=== PATIENT | male | born 1955 | race Caucasian/White ===

== ENCOUNTER 2022-07-19 03:37 | Outpatient (CLI) | payer MEDICARE, SELFPAY ==
--- OUTSIDE RECORDS SUMMARY | 2022-07-19 03:40 | XMS_ITS | Continuity of Care Document ---
Author Name Unknown Organization [facility] Address [address] [place] [address] Encounter [id number] FIN NBR [id number] Date(s): 03/27/22 - 03/27/[address] [id number] Encounter Diagnosis UTI (urinary tract infection)(Discharge Diagnosis) - 03/27/22 Discharge Disposition: Home or Self Care Attending Physician: Wolf Lennon MD Admitting Physician: Wolf Lennon MD Allergies, Adverse Reactions, Alerts Substance Reaction Severity Status Lovenox Rash Moderate Active Medications alfuzosin 10 mg oral tablet, extended release 10 mg = 1 tab, Oral, Daily, # 30 tab, 0 Refill(s) Start Date: 03/27/22 Status: Ordered cephalexin 500 mg oral capsule 500 mg = 1 cap, Oral, every 8 hr, # 21 EA, 0 Refill(s) Start Date: 03/27/22 Status: Ordered Farxiga 10 mg oral tablet 10 mg = 1 tab, Oral, Daily, # 30 tab, 0 Refill(s) Start Date: 03/27/22 Status: Ordered gabapentin enacarbil 600 mg oral tablet, extended release 600 mg =, Oral, BID, # 60 cap, 0 Refill(s) Start Date: 03/27/22 Status: Ordered lamoTRIgine 200 mg oral tablet 200 mg = 1 tab, Oral, BID, # 180 tab, 0 Refill(s) Start Date: 03/27/22 Status: Ordered losartan 50 mg oral tablet 50 mg = 1 tab, Oral, Daily, # 90 tab, 0 Refill(s) Start Date: 03/27/22 Status: Ordered Problem List Condition Confirmation Course Effective Dates Status Health St atus Informant UTI (urinary tract infection) Confirmed Active Results Laboratory List Name Date Basic Metabolic Panel (BMP) 03/27/22 CBC w/ Diff 03/27/22 PT/ INR 03/27/22 Urinalysis Microscopic 03/27/22 Urinalysis with Micro if Indicated and C ulture if Indicated 03/27/22 Automated Diff 03/27/22 Most recent to oldest [Reference Range]: 1 WBC [4.8-10.8 K/mcL] 6.6 K/mcL (03/27/22 11:38 AM) RBC [4.20-6.10 Million/mcL] 5.55 Million /mcL (03/27/22 11:38 AM) Neutro Auto [42.2-75.2 %] 58.3 % (03/27/22 11:38 AM) Lymph Auto [20.5-51.1 %] 35.2 % (03/27/22 11:38 AM) Graves Auto [1.7-9.3 %] 4.5 % (03/27/22 11:38 AM) Basophil Auto [0.0-0.8 %] 0.3 % (03/27/22 11:38 AM) Prothrombin Time [9.1-10.6 seconds] 10.1 seconds (03/27/22 11:38 AM) INR [0.9-1.1] 1.0 (03/27/22 11:38 AM) BUN [8-26 mg/dL] 25 mg/dL (03/27/22 11:38 AM) UA Color [Yellow] Stephanie *ABN* (03/27/22 11:38 AM) UA WBC [0-3] 6-10 *ABN* (03/27/22 11:38 AM) Glucose Level [74-106 mg/dL] 142 mg/dL *HI* (03/27/22 11:38 AM) Potassium Level [3.5-5.1 mmol/L] 4.4 mmo l/L (03/27/22 11:38 AM) Baso Absolute [0.0-0.2 K/mcL] 0.0 K/mcL (03/27/22 11:38 AM) MCV [80.0-99.0 fL] 86.3 fL (03/27/22 11:38 AM) UA Urobilinogen [0.2] 0.2 (03/27/22 11:38 AM) UA Amorph Urate Ángela [None Seen] Moderat e *ABN* (03/27/22 11:38 AM) UA Bili [Negative] Negative (03/27/22 11:38 AM) UA Ketones [Negative] Negative (03/27/2238 AM) MCHC [32.0-36.0 g/dL] 34.9 g/dL (03/27/22 11:38 AM) Osmolality [275-295 mOsm/kg] 282 mOsm/kg (03/27/2238 AM) Sodium Level [134-143 mmol/L] 138 mmol/L (03/27/22 11:38 AM) UA RBC [0-3] 50-99 *ABN* (03/27/22:38 AM) UA Leuk Est [Negative] Negative (03/27/22:38 AM) Lymph Absolute [1.2-3.4 K/mcL] 2.3 K/mcL (03/27/22 11:38 AM) UA Gran Cast [None Seen] 0-3 *ABN* (03/27/2238 AM) UA Nitrite [Negative] Negative (03/27/22:38 AM) UA Glucose [Negative] >=1000 *ABN* (03/27/22:38 AM) Hct [37.0-52.0 %] 47.9 % (03/27/22:38 AM) UA Bacteria [None Seen] 1+ 1 *ABN* (03/27/22:38 AM) Calcium Level [8.9-10.3 mg/dL] 9.8 mg/dL (03/27/22:38 AM) Graves Absolute [0.1-0.6 K/mcL] 0.3 K/mcL (03/27/22 11:38 AM) UA Protein [Negative] 30 *ABN* (03/27/22 11:38 AM) MCH [27.0-31.0 pg] 30.1 pg (03/27/22:38 AM) Neutro Absolute [1.4-6.5 K/mcL] 3.9 K/mc L (03/27/22 11:38 AM) Hgb [12.0-18.0 g/dL] 16.7 g/dL (03/27/22 1138 AM) UA Blood [Negative] Large *ABN* (03/27/22 11:38 AM) MPV [7.4-10.4 fL] 11.6 fL *HI* (03/27/22 11:38 AM) UA Spec Grav 1.025 *NA* (03/27/22 11:38 AM) Platelets [130-400 K/mcL] 163 K/mcL (03/27/22 11:38 AM) CO2 [22-32 mmol/L] 24 mmol/L (03/27/22 11:38 AM) Eos Absolute [0.0-0.2 K/mcL] 0.1 K/mcL (03/27/22 11:38 AM) UA pH 5.00 *NA* (03/27/22 11:38 AM) eGFR Non-AA 66 *NA* (03/27/22 11:38 AM) eGFR AA 66 *NA* (03/27/22 11:38 AM) UA Appear [Clear] Slightly Cloudy *ABN* (03/27/22 11:38 AM) Chloride Level [98-111 mmol/L] 103 mmol/ L (03/27/22 11:38 AM) RDW-CV [11.5-14.5 %] 13.5 % (03/27/22 11:38 AM) BUN/Creat Ratio [8.0-20.0] 20.3 *HI* (03/27/22 11:38 AM) Imm Gran Absolute 0.02 *NA* (03/27/22 11:38 AM) Imm Gran Auto [0.0-0.5 %] 0.3 % (03/27/22 11:38 AM) UA Culture Ind?. [No] Yes (03/27/22 11:38 AM) Urine Srce Clean Catch (03/27/22 11:38 AM) UA Trans Epi [None Seen] 0-3 *ABN* (03/27/22 11:38 AM) Creatinine Level [0.61-1.24 mg/dL] 1.23 mg/dL (03/27/22 11:38 AM) Anion Gap [3.0-12.0] 11.0 (03/27/22 11:38 AM) Eos, Auto [0.00-3.00 %] 1.40 % (03/27/22 11:38 AM) 1Result Comment: difficult to discern bacteria from amorphous material Orders for Microbiology Reports Name Date Urine Culture 03/27/22 Microbiology Reports TEST:Urine Culture STATUS:Order in Progress BODY SITE: SOURCE:Urine COLLECTED DATE/TIME:03/27/22 11:38 AM PRELIMINARY REPORT No growth of uropathogens Vital Signs Most recent to oldest [Reference Range]: 1 2 Temperature Temporal Artery [36-38 Deg C ] 35.7 Deg C *LOW* (03/27/22 12:30 PM) 36.1 Deg C (03/27/22 10:47 AM) Peripheral Pulse Rate [60-100 bpm] 66 bp m (03/27/22 12:30 PM) 78 bpm (03/27/22 10:47 AM) Respiratory Rate [12-24 br/min] 14 br/mi n (03/27/22 12:30 PM) 14 br/min (03/27/22 10:47 AM) Blood Pressure [90-140/60-90 mmHg] 142/7 6mmHg *HI* (03/27/22 12:30 PM) 149/86mmHg *HI* (03/27/22 10:47 AM) Weight Dosing 85.28 kg (03/27/22 11:37 AM) Weight Estimated 85.28 kg (03/27/22 10:47 AM) Height/Length Dosing 175.000 cm (03/27/22 11:37 AM) Height/Length Estimated 175.000 cm (03/27/22 10:47 AM) Social History Social History Type Response Tobacco Former tobacco user Tobacco Use:. Sex Hospital Discharge Instructions Patient Education 03/27/2022 12:00:23 Urinary Tract Infection, Adult Urinary Tract Infection, Adult A urinary tract infection (UTI) is an infection of any part of the urinary tract. The urinary tractincludes the kidneys, ureters, bladder, and urethra. These organs make, store, and get rid of urinein the body. An upper UTI affects the ureters and kidneys. A lower UTI affects the bladder and urethra. What are the causes? Most urinary tract infections are caused by bacteria in your genital area around your urethra, where urine leaves your body. These bacteria grow and cause inflammation of your urinary tract. What increases the risk? You are more likely to develop this condition if: ??? You have a urinary catheter that stays in place. ??? You are not able to control when you urinate or have a bowel movement (incontinence). ??? You are female and you: ??? Use a spermicide or diaphragm for control. ??? Have low estrogen levels. ??? Are . ??? You have certain genes that increase your risk. ??? You are sexually active. ??? You take antibiotic medicines. ??? You have a condition that causes your flow of urine to slow down, such as: ??? An enlarged prostate, if you are male. ??? Blockage in your urethra. ??? A kidney stone. ??? A nerve condition that affects your bladder control (neurogenic bladder). ??? Not getting enough to drink, or not urinating often. ??? You have certain medical conditions, such as: ??? Diabetes. ??? A weak disease-fighting system (immunesystem). ??? Sickle cell disease. ??? Gout. ??? Spinal cord injury. What are the signs or symptoms? Symptoms of this condition include: ??? Needing to urinate right away (urgency). ??? Frequent urination. This may include small amounts of urine each time you urinate. ??? Pain or burning with urination. ??? Blood in the urine. ??? Urine that smells bad or unusual. ??? Trouble urinating. ??? Cloudy urine. ??? Vaginal discharge, if you are female. ??? Pain in the abdomen or the lower back. You may also have: ??? Vomiting or a decreased appetite. ??? Confusion. ??? Irritability or tiredness. ??? A fever or chills. ??? Diarrhea. The first symptom in older adults may be confusion. In some cases, they may not have any symptoms until the infection has worsened. How is this diagnosed? This condition is diagnosed based on your medical history and a physical exam. You may also have other tests, including: ??? Urine tests. ??? Blood tests. ??? Tests for STIs (sexually transmitted infections). If you have had more than one UTI, a cystoscopy or imaging studies may be done to determine the cause of the infections. How is this treated? Treatment for this condition includes: ??? Antibiotic medicine. ??? Ufbn-fpc-jmzhyzm medicines to treat discomfort. ??? Drinking enough water to stay hydrated. If you have frequent infections or have other conditions such as a kidney stone, you may need to see a health care provider who specializes in the urinary tract (urologist). In rare cases, urinary tract infections can cause sepsis. Sepsis is a life- threatening condition that occurs when the body responds to an infection. Sepsis is treated in the hospital with IV antibiotics, fluids, and other medicines. Follow these instructions at home: Medicines ??? Take aduf-awr-nvxehao and prescription medicines only as told by your health care provider. ??? If you were prescribed an antibiotic medicine, take it as told by your health care provider. Donot stop using the antibiotic even if you start to feel better. General instructions ??? Make sure you: ??? Empty your bladder often and completely. Do not hold urine for long periods of time. ??? Empty your bladder after sex. ??? Wipe from front to back after urinating or having a bowel movement if you are female. Use each tissue only one time when you wipe. ??? Drink enough fluid to keep your urine pale yellow. ??? Keep all follow-up visits. This is important. Contact a health care provider if: ??? Your symptoms do not get better after 1???2 days. ??? Your symptoms go away and then return. Get help right away if: ??? You have severe pain in your back or your lower abdomen. ??? You have a fever or chills. ??? You have nausea or vomiting. Summary ??? A urinary tract infection (UTI) is an infection of any part of the urinary tract, which includes the kidneys, ureters, bladder, and urethra. ??? Most urinary tract infections are caused by bacteria in your genital area. ??? Treatment for this condition often includes antibiotic medicines. ??? If you were prescribed an antibiotic medicine, take it as told by your health care provider. Donot stop using the antibiotic even if you start to feel better. ??? Keep all follow-up visits. This is important. This information is not intended to replace advice given to you by your health care provider. Make sure you discuss any questions you have with your health care provider. Document Revised: 11/10/2020 Document Reviewed: 11/10/2020 [employer] Patient Education ?? 2021 [employer]. Follow Up Care 03/27/2022 10:47:16 With:Nephrology Address: When:04/01/2022 07:00:00 Comments:Keep your scheduled appointment Physician Emergency department Note * Daniella Gotti [employer]OTOTYPING ENGINEER: PERFORM Event Display: ED Note Physician Authored Date: [id number] JARRETT ROOT :1955 Age:66 years Sex:Male Visit Date:03/27/2022 Basic Information Time Seen: Daniella Gotti [employer]ER[employer]OTYPING ENGINEER / 03/27/2022 10:55 Chief Complaint Ptreports blood inurine since before 03/14, denies fevers, or pain w/ urination, endorces some hesitency. History Of Present Illness: This is a very pleasant 66-year-old male patient with a history of nephrectomy secondary to cancer several years ago.?? He has had no issues with kidney function or urinary tract infections.?? He noted at the end of February that he had blood in his urine.?? He did contact the packager head as he has a solitary kidney.?? He reports that he has scheduled appointments for evaluation coming up but noted that the urine was getting darker in color and as he has a solitary kidney was concerned and wanted an evaluation sooner.?? He has had no fevers no symptoms of dysuria frequency or urgency no abdominal or flank pain.?? He has had no recent illness Review of Systems: Constitutional:?No??fevers,?No??chills,?No??sweats Gastrointestinal:?Nonausea,?No??vomiting,?No??diarrhea Genitourinary:?Positive for??hematuria No frequency urgency dysuria or flank pain Patel/Lymph:?No??bruising tendency,?No??swollen lymph glands Musculoskeletal:??No??back pain,?? Integumentary:?No??rash,?No??pruritus,?No??abrasions Neurologic: Alert & oriented X 4 Psychiatric:?No??anxiety,?No??depression Physical Exam Vitals & Measurements T:??35.7?C ??(Temporal Artery)?? HR:??66??(Peripheral)?? RR:??14?? BP:??142/76?? SpO2:??100%?? HT:??175.000??cm?? WT:??85.28??kg??(Estimated)?? General: Alert and oriented, well nourished,?No??acute distress Eye: PERRL, EOMI,?Normal??conjunctiva HENT: Normocephalic, Neck: Supple, non-tender,? Lungs:??respirations even and unlabored CV:?regular rate and rhythm Abdomen: Soft, non-tender, non-distended,? Musculoskeletal:?Normal?? range of motion and strength,?No??tenderness,?No??swelling Skin: Skin is warm, dry and pink,?No??rashes,?No??lesions Neurologic: Awake, alert and oriented X4, Psychiatric: Cooperative, appropriate mood and affect ?? Procedure No Qualifying Data Assessment/Plan 1.??UTI (urinary tract infection)??N39.0 Given ceftriaxone 1 g IV while awaiting cultures we will discharge home on cephalexin 500 mg 3 times daily for 1 week he should keep his follow-up appointment with nephrology as scheduled return sooner for new or worsening symptoms Orders: cephalexin 500 mg oral capsule, 500 mg = 1 cap, Oral, every 8 hr, # 21 EA, 0 Refill(s) Urine Culture, Urine, Stat collect, ST - Stat, 03/27/22 11:38:00 EST, Once, Nurse collect, Collected, 03/27/22 11:38:00 EST, Print Label, [id number] Patient Education Urinary Tract Infection, Adult Follow Up With When Contact Information Nephrology 04/01/2022 08:00 AM EST Additional Instructions: Keep your scheduled appointment Medication Reconciliation New Prescription cephalexin (cephalexin 500 mg oral capsule)1 Capsules Oral (given by mouth) every 8 hours. Refills:0. ?? Unchanged alfuzosin (alfuzosin 10 mg oral tablet, extended release)1 tab Oral (given by mouth) every day. ?? dapagliflozin (Farxiga 10 mg oral tablet)1 tab Oral (given by mouth) every day. ?? gabapentin (gabapentin enacarbil 600 mg oral tablet, extended release)600 Milligrams Oral (given bymouth) 2 times a day. ?? lamoTRIgine (lamoTRIgine 200 mg oral tablet)1 tab Oral (given by mouth) 2 times a day. ?? losartan (losartan 50 mg oral tablet)1 tab Oral (given by mouth) every day. Problem List/Past Medical History Ongoing UTI (urinary tract infection) Historical No qualifying data Medication Administration Given cefTRIAXone, 1 g, IV Piggyback Allergies Lovenox??(Rash) Social History Alcohol 1-2 times per year Electronic Cigarette/Vaping Electronic Cigarette Use: Never. Tobacco Former tobacco user Tobacco Use:. Lab Results CBC and Differential?? LATEST RESULTS?? WBC?? 03/27/22 11:38?? 6.6?? RBC?? 03/27/22 11:38?? 5.55?? Hgb?? 03/27/22 11:38?? 16.7?? Hct?? 03/27/22 11:38?? 47.9?? MCV?? 03/27/22 11:38?? 86.3?? MCH?? 03/27/22 11:38?? 30.1?? MCHC?? 03/27/22 11:38?? 34.9?? RDW-CV?? 03/27/22 11:38?? 13.5?? Platelets?? 03/27/22 11:38?? 163?? MPV?? 03/27/22 11:38?? 11.6 ??High?? Neutro Auto?? 03/27/22 11:38?? 58.3?? Lymph Auto?? 03/27/22 11:38?? 35.2?? Graves Auto?? 03/27/22 11:38?? 4.5?? Eos, Auto?? 03/27/22 11:38?? 1.40?? Basophil Auto?? 03/27/22 11:38?? 0.3?? Imm Gran Auto?? 03/27/22 11:38?? 0.3?? Neutro Absolute?? 03/27/22 11:38?? 3.9?? Lymph Absolute?? 03/27/22 11:38?? 2.3?? Graves Absolute?? 03/27/22 11:38?? 0.3?? Eos Absolute?? 03/27/22 11:38?? 0.1?? Baso Absolute?? 03/27/22 11:38?? 0.0?? Imm Gran Absolute?? 03/27/22 11:38?? 0.02? Coagulation?? LATEST RESULTS?? Prothrombin Time?? 03/27/22 11:38?? 10.1?? INR?? 03/27/22 11:38?? 1.0? Routine Chemistry?? LATEST RESULTS?? Sodium Level?? 03/27/22 11:38?? 138?? Potassium Level?? 03/27/22 11:38?? 4.4?? Chloride Level?? 03/27/22 11:38?? 103?? CO2?? 03/27/22 11:38?? 24?? BUN?? 03/27/22 11:38?? 25?? Glucose Level?? 03/27/22 11:38?? 142 ??High?? Creatinine Level?? 03/27/22 11:38?? 1.23?? BUN/Creat Ratio?? 03/27/22 11:38?? 20.3 ??High?? eGFR AA?? 03/27/22 11:38?? 66?? eGFR Non-AA?? 03/27/22 11:38?? 66?? Calcium Level?? 03/27/22 11:38?? 9.8?? Anion Gap?? 03/27/22 11:38?? 11.0?? Osmolality?? 03/27/22 11:38?? 282? UA Macroscopic?? LATEST RESULTS?? Urine Srce?? 03/27/22 11:38?? Clean Catch?? UA Color?? 03/27/22 11:38?? Stephanie Abnormal?? UA Appear?? 03/27/22 11:38?? Slightly Cloudy Abnormal?? UA Glucose?? 03/27/22 11:38?? >=1000 Abnormal?? UA Bili?? 03/27/22 11:38?? Negative?? UA Ketones?? 03/27/22 11:38?? Negative?? UA Spec Grav?? 03/27/22 11:38?? 1.025?? UA Blood?? 03/27/22 11:38?? Large Abnormal?? UA pH?? 03/27/22 11:38?? 5.00?? UA Protein?? 03/27/22 11:38?? 30 Abnormal?? UA Urobilinogen?? 03/27/22 11:38?? 0.2?? UA Nitrite?? 03/27/22 11:38?? Negative?? UA Leuk Est?? 03/27/22 11:38?? Negative?? UA Culture Ind?.?? 03/27/22 11:38?? Yes? UA Microscopic?? LATEST RESULTS?? UA WBC?? 03/27/22 11:38?? 6-10 Abnormal?? UA RBC?? 03/27/22 11:38?? 50-99 Abnormal?? UA Trans Epi?? 03/27/22 11:38?? 0-3 Abnormal?? UA Bacteria?? 03/27/22 11:38?? 1+ Abnormal?? UA Amorph Urate Ángela?? 03/27/22 11:38?? Moderate Abnormal?? UA Gran Cast?? 03/27/22 11:38?? 0-3 Abnormal? Electronically Signed on 03/27/22 01:02 PM Daniella Gotti APRN Emergency department Discharge instructions * Daniella Gotti APRN: PERFORM Event Display: ED Discharge Information Authored Date: [id number] JARRETT ROOT :1955 Age:66 years Sex:Male Visit Date:03/27/2022 Discharge Instructions We would like to thank you for allowing us to assist you with your healthcare needs. The following includes patient education materials and information regarding your injury/illness. Diagnosis from Today's Visit UTI (urinary tract infection) Discharge Vitals Temperature??(Temporal Artery) 96.3 ??F (35.7 ??C) Heart Rate??(Peripheral) 66 Respiratory Rate?? 14 Blood Pressure?? 142/76?? Height?? 68.90 in (175.000 cm) Weight??(Estimated) 188.04 lb (85.28 kg) Allergies Lovenox??(Rash) What to Do Next Instructions from Your Care Team Take antibiotics as prescribed even if you feel better unless directed by your doctor You Need to Schedule the Following Appointments Follow Up with??Nephrology When:??04/01/2022 08:00 AM EST Why: Keep your scheduled appointment You were treated today on an emergency basis; it may be borrero to contact your primary care provider to notify them of your visit today. You may have been referred to your regular doctor or a specialist, please follow up as instructed. If your condition worsens or you can't get in to see the doctor, contact the Emergency Department. Medications What How Much When Instructions Next Dose New cephalexin (cephalexin 500 mg oral capsule) 1 Capsules Oral (given by mouth) Every 8 hours Printed Prescription Unchanged alfuzosin (alfuzosin 10 mg oral tablet, extended release) 1 tab Oral (given by mouth) Every day Unchanged dapagliflozin (Farxiga 10 mg oral tablet) 1 tab Oral (given by mouth) Every day Unchanged gabapentin (gabapentin enacarbil 600 mg oral tablet, extended release) 600 Milligrams Oral (given by mouth) 2 times a day Unchanged lamoTRIgine (lamoTRIgine 200 mg oral tablet) 1 tab Oral (given by mouth) 2 times a day Unchanged losartan (losartan 50 mg oral tablet) 1 tab Oral (given by mouth) Every day Education Materials Urinary Tract Infection, Adult A urinary tract infection (UTI) is an infection of any part of the urinary tract. The urinary tractincludes the kidneys, ureters, bladder, and urethra. These organs make, store, and get rid of urinein the body. An upper UTI affects the ureters and kidneys. A lower UTI affects the bladder and urethra. What are the causes? Most urinary tract infections are caused by bacteria in your genital area around your urethra, where urine leaves your body. These bacteria grow and cause inflammation of your urinary tract. What increases the risk? You are more likely to develop this condition if: ? You have a urinary catheter that stays in place. ? You are not able to control when you urinate or have a bowel movement (incontinence). ? You are female and you: ? Use a spermicide or diaphragm for control. ? Have low estrogen levels. ? Are . ? You have certain genes that increase your risk. ? You are sexually active. ? You take antibiotic medicines. ? You have a condition that causes your flow of urine to slow down, such as: ? An enlarged prostate, if you are male. ? Blockage in your urethra. ? A kidney stone. ? A nerve condition that affects your bladder control (neurogenic bladder). ? Not getting enough to drink, or not urinating often. ? You have certain medical conditions, such as: ? Diabetes. ? A weak disease-fighting system (immunesystem). ? Sickle cell disease. ? Gout. ? Spinal cord injury. What are the signs or symptoms? Symptoms of this condition include: ? Needing to urinate right away (urgency). ? Frequent urination. This may include small amounts of urine each time you urinate. ? Pain or burning with urination. ? Blood in the urine. ? Urine that smells bad or unusual. ? Trouble urinating. ? Cloudy urine. ? Vaginal discharge, if you are female. ? Pain in the abdomen or the lower back. You may also have: ? Vomiting or a decreased appetite. ? Confusion. ? Irritability or tiredness. ? A fever or chills. ? Diarrhea. The first symptom in older adults may be confusion. In some cases, they may not have any symptoms until the infection has worsened. How is this diagnosed? This condition is diagnosed based on your medical history and a physical exam. You may also have other tests, including: ? Urine tests. ? Blood tests. ? Tests for STIs (sexually transmitted infections). If you have had more than one UTI, a cystoscopy or imaging studies may be done to determine the cause of the infections. How is this treated? Treatment for this condition includes: ? Antibiotic medicine. ? Chpx-iem-xdnvcaf medicines to treat discomfort. ? Drinking enough water to stay hydrated. If you have frequent infections or have other conditions such as a kidney stone, you may need to see a health care provider who specializes in the urinary tract (urologist). In rare cases, urinary tract infections can cause sepsis. Sepsis is a life- threatening condition that occurs when the body responds to an infection. Sepsis is treated in the hospital with IV antibiotics, fluids, and other medicines. Follow these instructions at home: Medicines ? Take vwno-von-kxpdeza and prescription medicines only as told by your health care provider. ? If you were prescribed an antibiotic medicine, take it as told by your health care provider. Do notstop using the antibiotic even if you start to feel better. General instructions ? Make sure you: ? Empty your bladder often and completely. Do not hold urine for long periods of time. ? Empty your bladder after sex. ? Wipe from front to back after urinating or having a bowel movement if you are female. Use each tissue only one time when you wipe. ? Drink enough fluid to keep your urine pale yellow. ? Keep all follow-up visits. This is important. Contact a health care provider if: ? Your symptoms do not get better after 1???2 days. ? Your symptoms go away and then return. Get help right away if: ? You have severe pain in your back or your lower abdomen. ? You have a fever or chills. ? You have nausea or vomiting. Summary ? A urinary tract infection (UTI) is an infection of any part of the urinary tract, which includes the kidneys, ureters, bladder, and urethra. ? Most urinary tract infections are caused by bacteria in your genital area. ? Treatment for this condition often includes antibiotic medicines. ? If you were prescribed an antibiotic medicine, take it as told by your health care provider. Do notstop using the antibiotic even if you start to feel better. ? Keep all follow-up visits. This is important. This information is not intended to replace advice given to you by your health care provider. Make sure you discuss any questions you have with your health care provider. Document Revised: 11/10/2020 Document Reviewed: 11/10/2020 [employer] Patient Education ?? 2021 [employer] Tests Performed Medications and Immunizations Administered Given cefTRIAXone, 1 g, IV Piggyback Lab Test Name Test Result Date/Time WBC 6.6 K/mcL 03/27/2022 11:38 EST RBC 5.55 Million/mcL 03/27/2022 11:38 EST Hgb 16.7 g/dL 03/27/2022 11:38 EST Hct 47.9 % 03/27/2022 11:38 EST MCV 86.3 fL 03/27/2022 11:38 EST MCH 30.1 pg 03/27/2022 11:38 EST MCHC 34.9 g/dL 03/27/2022 11:38 EST RDW-CV 13.5 % 03/27/2022 11:38 EST Platelets 163 K/mcL 03/27/2022 11:38 EST MPV 11.6 fL 03/27/2022 11:38 EST Neutro Auto 58.3 % 03/27/2022 11:38 EST Lymph Auto 35.2 % 03/27/2022 11:38 EST Graves Auto 4.5 % 03/27/2022 11:38 EST Eos, Auto 1.40 % 03/27/2022 11:38 EST Basophil Auto 0.3 % 03/27/2022 11:38 EST Imm Gran Auto 0.3 % 03/27/2022 11:38 EST Neutro Absolute 3.9 K/mcL 03/27/2022 11:38 EST Lymph Absolute 2.3 K/mcL 03/27/2022 11:38 EST Graves Absolute 0.3 K/mcL 03/27/2022 11:38 EST Eos Absolute 0.1 K/mcL 03/27/2022 11:38 EST Baso Absolute 0.0 K/mcL 03/27/2022 11:38 EST Imm Gran Absolute 0.02 03/27/2022 11:38 EST Prothrombin Time 10.1 seconds 03/27/2022 11:38 EST INR 1.0 03/27/2022 11:38 EST Sodium Level 138 mmol/L 03/27/2022 11:38 EST Potassium Level 4.4 mmol/L 03/27/2022 11:38 EST Chloride Level 103 mmol/L 03/27/2022 11:38 EST CO2 24 mmol/L 03/27/2022 11:38 EST BUN 25 mg/dL 03/27/2022 11:38 EST Glucose Level 142 mg/dL 03/27/2022 11:38 EST Creatinine Level 1.23 mg/dL 03/27/2022 11:38 EST BUN/Creat Ratio 20.3 03/27/2022 11:38 EST eGFR AA 66 03/27/2022 11:38 EST eGFR Non-AA 66 03/27/2022 11:38 EST Calcium Level 9.8 mg/dL 03/27/2022 11:38 EST Anion Gap 11.0 03/27/2022 11:38 EST Osmolality 282 mOsm/kg 03/27/2022 11:38 EST Urine Srce Clean Catch 03/27/2022 11:38 EST UA Color AmberCAPS 03/27/2022 11:38 EST UA Appear SL CLOUDY 03/27/2022 11:38 EST UA Glucose >=1000 03/27/2022 11:38 EST UA Bili NEGATIVE 03/27/2022 11:38 EST UA Ketones NEGATIVE 03/27/2022 11:38 EST UA Spec Grav 1.025 03/27/2022 11:38 EST UA Blood LARGE Clinitek 03/27/2022 11:38 EST UA pH 5.00 03/27/2022 11:38 EST UA Protein 30 03/27/2022 11:38 EST UA Urobilinogen 0.2 03/27/2022 11:38 EST UA Nitrite NEGATIVE 03/27/2022 11:38 EST UA Leuk Est NEGATIVE 03/27/2022 11:38 EST UA Culture Ind?. Yes 03/27/2022 11:38 EST UA WBC 6-10 03/27/2022 11:38 EST UA RBC 50-99 03/27/2022 11:38 EST UA Trans Epi 0-3 03/27/2022 11:38 EST UA Bacteria 1+ 03/27/2022 11:38 EST UA Amorph Urate Ángela Moderate 03/27/2022 11:38 EST UA Gran Cast 0-3 03/27/2022 11:38 EST Patient/Salt Cutter Signature Patient Name:JARRETT ROOT I have received this information and my questions have been answered. Patient/Salt Cutter Name: Patient/Salt Cutter Signature: Relationship to Patient: Witness Name/Signature: Date: Electronically Signed on: 03/27/2022 13:02 ESTSigned by:SALENA
[2022-07-19 09:40] LABS: FREE T4 0.59 ng/dL (0.76-1.46)
[2022-07-19 10:03] LABS: TSH 170.16 uIU/mL (0.36-3.74)
[2022-07-19 10:13] LABS: T4 5.7 ug/dL (4.7-13.3)
== END 2022-07-19 03:38 | disposition home or self-care (01) ==
LOC: LBO 03:39
DX: E03.9 Hypothyroidism, unspecified (principal)
CPT/HCPCS: 36415; 84436; 84439; 84443

== ENCOUNTER 2022-10-08 11:19 | Outpatient (CLI) | payer MEDICARE, SELFPAY ==
[2022-10-08 10:29] LABS: Abs Immature Grans 0.02 10^3/uL (0.0-0.06); Absolute Basophil Count 0.01 10^3/uL (0.0-0.2); Absolute Eosinophil Count 0.07 10^3/uL (0.0-0.7); Absolute Lymphocyte Count 1.75 10^3/uL (1.2-3.4); Absolute Monocyte Count 0.34 10^3/uL (0.1-0.8); Absolute Neutrophil Count 3.63 10^3/uL (1.2-6.7); Basophils % 0.2; Eosinophils % 1.2; HCT 40.9 % (40.0-50.0); HGB 13.9 g/dL (13.5-17.5); Immature Grans % 0.3; Lymphocytes % 30.1; MCH 29.4 pg (27.0-33.0); MCV 87 fL (80-95); MPV 10.2 fL (8.0-11.0); Monocytes % 5.8; Neutrophils % 62.4; Platelet Count 137 10^3/uL (130-400); RBC 4.73 10^6/uL (4.36-5.78); RDW 12.3 % (11.8-14.1); RDW-SD 38.8 fL; WBC 5.82 10^3/uL (4.4-10.8)
[2022-10-08 11:05] LABS: ALT 17 U/L (16-63); AST 13 U/L (15-37); Albumin 3.7 g/dL (3.4-5.0); Alkaline Phosphatase 72 U/L (46-116); Anion Gap 10.1 mmol/L (3-11); BUN 27 mg/dL (7-18); Bilirubin, Total 0.4 mg/dL (0.2-1.0); CO2 27.9 mmol/L (21.0-32.0); CREATININE 1.6 mg/dL (0.70-1.30); Calcium 8.8 mg/dL (8.5-10.1); Chloride 103 mmol/L (98-107); Estimated GFR 47.52 (mL/min/1.73m2); FREE T4 1.25 ng/dL (0.76-1.46); Glucose 227 mg/dL (74-106); Potassium 4.5 mmol/L (3.5-5.1); Sodium 141 mmol/L (136-145); TSH 1.27 uIU/mL (0.36-3.74); Total Protein 7.3 g/dL (6.4-8.2)
== END 2022-10-08 11:20 | disposition home or self-care (01) ==
LOC: LBO 11:24
PROVIDERS: Visit Provider Internal Medicine
DX: C78.7 Secondary malignant neoplasm of liver and intrahepatic bile duct (principal); C64.9 Malignant neoplasm of unspecified kidney, except renal pelvis
CPT/HCPCS: 36415; 80053; 84439; 84443; 85025

== ENCOUNTER 2023-01-07 01:34 | Outpatient (RCR) | payer MEDICARE, SELFPAY ==
[2022-12-30 12:49] LABS: Abs Immature Grans 0.03 10^3/uL (0.0-0.06); Absolute Basophil Count 0.01 10^3/uL (0.0-0.2); Absolute Eosinophil Count 0.02 10^3/uL (0.0-0.7); Absolute Lymphocyte Count 2.12 10^3/uL (1.2-3.4); Absolute Monocyte Count 0.49 10^3/uL (0.1-0.8); Absolute Neutrophil Count 2.25 10^3/uL (1.2-6.7); Basophils % 0.2; Eosinophils % 0.4; HCT 35.1 % (40.0-50.0); HGB 12.4 g/dL (13.5-17.5); Immature Grans % 0.6; Lymphocytes % 43.1; MCH 28.8 pg (27.0-33.0); MCHC 35.3 % (32.0-36.0); MCV 81 fL (80-95); MPV 9.9 fL (8.0-11.0); Neutrophils % 45.7; Platelet Count 140 10^3/uL (130-400); RBC 4.31 10^6/uL (4.36-5.78); RDW 12.4 % (11.8-14.1); WBC 4.92 10^3/uL (4.4-10.8)
[2022-12-30] MEDS: Normal Saline Flush 10 ML SYR IVP (13:04)
[2022-12-30 13:20] LABS: ALT 66 U/L (16-63); AST 31 U/L (15-37); Alkaline Phosphatase 69 U/L (46-116); Anion Gap 9.2 mmol/L (3-11); BUN 21 mg/dL (7-18); Bilirubin, Total 0.6 mg/dL (0.2-1.0); CO2 26.8 mmol/L (21.0-32.0); CREATININE 1.4 mg/dL (0.70-1.30); Calcium 9.8 mg/dL (8.5-10.1); Chloride 101 mmol/L (98-107); Estimated GFR 55.78 (mL/min/1.73m2); FREE T4 1.23 ng/dL (0.76-1.46); Glucose 136 mg/dL (74-106); Potassium 4.5 mmol/L (3.5-5.1); Sodium 137 mmol/L (136-145); TSH 6.18 uIU/mL (0.36-3.74); Total Protein 7.2 g/dL (6.4-8.2)
[2023-01-07] MEDS: Normal Saline Flush 10 ML SYR IVP (12:09)
[2023-01-07 12:24] LABS: HCT 33.2 % (40.0-50.0); HGB 11.9 g/dL (13.5-17.5); MCH 28.8 pg (27.0-33.0); MCHC 35.8 % (32.0-36.0); MCV 80 fL (80-95); MPV 9.4 fL (8.0-11.0); Platelet Count 205 10^3/uL (130-400); RBC 4.13 10^6/uL (4.36-5.78); RDW 12.9 % (11.8-14.1); RDW-SD 35.4 fL; WBC 5.38 10^3/uL (4.4-10.8)
[2023-01-07 12:47] LABS: Absolute Basophil Count 0.05 10^3/uL (0.0-0.2); Absolute Eosinophil Count 0.05 10^3/uL (0.0-0.7); Absolute Lymphocyte Count 1.94 10^3/uL (1.2-3.4); Absolute Monocyte Count 0.32 10^3/uL (0.1-0.8); Absolute Neutrophil Count 2.74 10^3/uL (1.2-6.7); Atypical Lymphocytes % 4; Bands % 1; Metamyelocytes % 2; Myelocytes % 3
[2023-01-07 12:48] LABS: Diff Comment Manual Differential; RBC Morphology Normal
[2023-01-07 12:50] LABS: ALT 47 U/L (16-63); AST 28 U/L (15-37); Alkaline Phosphatase 76 U/L (46-116); Anion Gap 10.3 mmol/L (3-11); BUN 24 mg/dL (7-18); Bilirubin, Total 0.4 mg/dL (0.2-1.0); CO2 25.7 mmol/L (21.0-32.0); CREATININE 1.4 mg/dL (0.70-1.30); Calcium 9.8 mg/dL (8.5-10.1); Chloride 101 mmol/L (98-107); Estimated GFR 55.78 (mL/min/1.73m2); FREE T4 1.06 ng/dL (0.76-1.46); Glucose 135 mg/dL (74-106); Potassium 4.6 mmol/L (3.5-5.1); Sodium 137 mmol/L (136-145); TSH 17.02 uIU/mL (0.36-3.74); Total Protein 7.3 g/dL (6.4-8.2)
== END 2023-01-11 23:59 | disposition home or self-care (01) ==
LOC: INF 01:34
PROVIDERS: Visit Provider Internal Medicine
DX: C64.9 Malignant neoplasm of unspecified kidney, except renal pelvis (principal); C78.7 Secondary malignant neoplasm of liver and intrahepatic bile duct; Z45.2 Encounter for adjustment and management of vascular access device; Z79.899 Other long term (current) drug therapy
CPT/HCPCS: 36591; 80053; 84439; 84443; 85025

== ENCOUNTER → 2023-02-07 00:23 | Outpatient (CLI) | payer MEDICARE, SELFPAY ==
--- NOTE | 2023-02-07 09:00 | DI.CT_ITS ---
Exam(s) CT CHEST/ABD/PEL W EXAM: CT CHEST/ABD/PEL W CLINICAL HISTORY: METASTATIC UROTHELIAL CA,C79.10,S/P TREATMENT, ? RESPONSE. TECHNIQUE: Imaging Protocol: Axial computed tomography images with coronal and sagittal reformatted images were created and reviewed CONTRAST MATERIAL: Intravenous: Omnipaque 350 Contrast volume:100 ml Oral: yes / COMPARISON: CT CT CHEST/ABD/PELVIS W/CONTRAST from 11/11/2022 FINDINGS: CHEST: Tracheobronchial tree: Patent where visualized. Pulmonary parenchyma: Mild interval decrease in size of lobulated nodules in right middle lobe now me asuring 2.5 x 1.3 cm compared to 2.6 x 1.6 cm on prior exam. Pleura: No effusion or pneumothorax. Lymph nodes: Within normal limits. Aorta: Thoracic portion non-dilated. Pulmonary arteries: No evidence of emboli. Heart: Normal size. Coronary artery calcifications. No pericardial effusion. Bones: Unremarkable degenerative changes. Stable small sclerotic focus T9.No compression fractures. Port over left upper chest with tip in right atrium. Small hiatal hernia. ABDOMEN and PELVIS: Liver: Normal density. Mild interval are increase in size and conspicuity of hepatic lesions. Larger lesion in the lateral right lobe measures 3.4 cm compared with 2.6 cm on the prior exam. Lesion infer ior right lobe measures 3.4 cm compared to 2.9 cm on the prior study. Gallbladder and biliary tract: Cholecystectomy. No evidence of stones or wall thickening. No biliar y dilatation. Pancreas: Some fatty atrophy in the head. No abnormal calcifications or inflammatory process. Spleen: Stable enlargement. Stable hyper vascular lesion inferiorly, likely hemangioma Kidneys: Status post right nephrectomy. No radiodense stones or obstructive uropathy. No suspicious masses seen. Stable appearance of simple cysts on the left kidney. Adrenal glands: Status post right adrenalectomy. No masses seen. Aorta: Abdominal portion non-dilated. Moderate atherosclerotic changes. Multiple vascular clips ag ain noted along aorta and proximal iliac arteries. Lymph nodes: Within normal limits. Soft tissues: Bilateral fatty containing inguinal hernias. Bladder: Moderate diffuse wall thickening appears thicker than on prior exam. No focal mass or calcif ication. Bowel: No obstruction or bowel wall thickening. Peritoneal cavity: Mild decrease of omental deposit measuring 3 x 3 x 2 cm. No ascites. No focal col lection or mesenteric inflammatory response. Bones: degenerative changes. Stable mild compression fracture superior endplate L1. Severe degenerat emerson disc changes L5-S1. Reproductive organs: Prostate mildly enlarged. IMPRESSION: Chest: Mild interval decrease in lobulated nodule in the right middle lobe. No new abnormalities. Abdomen pelvis: Mild interval increase in size of liver metastases. Stable to mild decrease in size o f omental mass. No new findings. Increased bladder wall thickening. No focal mass or stone. RADIATION DOSE DELIVERED: Total DLP DATA REPOSITORY: All CT scans at this facility are submitted to the National Radiology Data Registry (NRDR) Dose Index Registry (DIR) with the [employer] (ACR). RADIATION OPTIMIZATION: All CT scans at this facility use at least one of these dose optimization te chniques: automated exposure control; mA and/or kV adjustment per patient size (includes targeted exa ms where dose is matched to clinical indication); or iterative reconstruction.
[2023-02-07] MEDS: Barium Sulfate 2% W/V-Berry Smoothie 450 ML BTL 900 ML PO (09:19)
[2023-02-07] MEDS: Omnipaque 350 MG/ML 500 ML BTL-Imaging package 100 ML IJ (11:55)
== END ==
PROVIDERS: Visit Provider Nurse Practitioner Family
DX: C78.7 Secondary malignant neoplasm of liver and intrahepatic bile duct (principal); Z09 Encounter for follow-up examination after completed treatment for conditions other than malignant neoplasm; R91.1 Solitary pulmonary nodule
CPT/HCPCS: 74177; 71260

== ENCOUNTER 2023-02-11 02:30 | Outpatient (RCR) | payer MEDICARE, SELFPAY ==
[2023-01-21] MEDS: Normal Saline Flush 10 ML SYR IVP (12:07)
[2023-01-21 12:33] LABS: Absolute Basophil Count 0.03 10^3/uL (0.0-0.2); Absolute Eosinophil Count 0.03 10^3/uL (0.0-0.7); Absolute Lymphocyte Count 1.63 10^3/uL (1.2-3.4); Absolute Monocyte Count 0.62 10^3/uL (0.1-0.8); Absolute Neutrophil Count 3.02 10^3/uL (1.2-6.7); Basophils % 0.6; Eosinophils % 0.6; HCT 28.3 % (40.0-50.0); HGB 9.6 g/dL (13.5-17.5); Immature Grans % 1.8; MCH 28.5 pg (27.0-33.0); MCHC 33.9 % (32.0-36.0); MCV 84 fL (80-95); Monocytes % 11.4; Neutrophils % 55.6; Nucleated RBC 0.4 % (0.0-0.3); Platelet Count 104 10^3/uL (130-400); RBC 3.37 10^6/uL (4.36-5.78); RDW 17.1 % (11.8-14.1); RDW-SD 37.3 fL; WBC 5.43 10^3/uL (4.4-10.8)
[2023-01-21 13:13] LABS: ALT 33 U/L (16-63); AST 24 U/L (15-37); Albumin 3.7 g/dL (3.4-5.0); Alkaline Phosphatase 66 U/L (46-116); Anion Gap 9.3 mmol/L (3-11); BUN 15 mg/dL (7-18); Bilirubin, Total 0.5 mg/dL (0.2-1.0); CO2 25.7 mmol/L (21.0-32.0); CREATININE 1.4 mg/dL (0.70-1.30); Calcium 8.9 mg/dL (8.5-10.1); Chloride 103 mmol/L (98-107); Estimated GFR 55.78 (mL/min/1.73m2); FREE T4 1.44 ng/dL (0.76-1.46); Glucose 190 mg/dL (74-106); Potassium 4.4 mmol/L (3.5-5.1); Sodium 138 mmol/L (136-145); TSH 2.92 uIU/mL (0.36-3.74)
[2023-01-28 10:40] LABS: Abs Immature Grans 0.15 10^3/uL (0.0-0.06); Absolute Basophil Count 0.02 10^3/uL (0.0-0.2); Absolute Eosinophil Count 0.03 10^3/uL (0.0-0.7); Absolute Lymphocyte Count 1.39 10^3/uL (1.2-3.4); Absolute Monocyte Count 0.09 10^3/uL (0.1-0.8); Absolute Neutrophil Count 2.43 10^3/uL (1.2-6.7); Basophils % 0.5; Eosinophils % 0.7; HCT 26.9 % (40.0-50.0); HGB 9.7 g/dL (13.5-17.5); Immature Grans % 3.6; Lymphocytes % 33.8; MCH 29.7 pg (27.0-33.0); MCHC 36.1 % (32.0-36.0); MCV 82 fL (80-95); MPV 9.6 fL (8.0-11.0); Monocytes % 2.2; Neutrophils % 59.2; Nucleated RBC 0.5 % (0.0-0.3); Platelet Count 158 10^3/uL (130-400); RBC 3.27 10^6/uL (4.36-5.78); RDW 16.3 % (11.8-14.1); RDW-SD 42.9 fL; WBC 4.11 10^3/uL (4.4-10.8)
[2023-01-28 11:13] LABS: ALT 54 U/L (16-63); AST 31 U/L (15-37); Albumin 3.8 g/dL (3.4-5.0); Alkaline Phosphatase 71 U/L (46-116); Anion Gap 9.2 mmol/L (3-11); BUN 25 mg/dL (7-18); Bilirubin, Total 0.6 mg/dL (0.2-1.0); CO2 25.8 mmol/L (21.0-32.0); CREATININE 1.3 mg/dL (0.70-1.30); Calcium 9.7 mg/dL (8.5-10.1); Chloride 102 mmol/L (98-107); Estimated GFR 60.96 (mL/min/1.73m2); Glucose 196 mg/dL (74-106); Potassium 4.8 mmol/L (3.5-5.1); Sodium 137 mmol/L (136-145); TSH 15.63 uIU/mL (0.36-3.74); Total Protein 7.2 g/dL (6.4-8.2)
[2023-01-28] MEDS: Normal Saline Flush 10 ML SYR IVP (12:27)
[2023-01-28 17:16] LABS: Hemoglobin A1C 8.2 % (<5.7)
[2023-02-07] MEDS: Normal Saline Flush 10 ML SYR IVP (08:40)
[2023-02-11] MEDS: Normal Saline Flush 10 ML SYR IVP (10:15)
[2023-02-11 10:48] LABS: Abs Immature Grans 0.08 10^3/uL (0.0-0.06); Absolute Basophil Count 0.02 10^3/uL (0.0-0.2); Absolute Eosinophil Count 0.03 10^3/uL (0.0-0.7); Absolute Lymphocyte Count 1.28 10^3/uL (1.2-3.4); Absolute Neutrophil Count 2.15 10^3/uL (1.2-6.7); Basophils % 0.5; Eosinophils % 0.7; HCT 24.3 % (40.0-50.0); HGB 8.2 g/dL (13.5-17.5); Immature Grans % 1.9; Lymphocytes % 30.8; MCH 29.9 pg (27.0-33.0); MCHC 33.7 % (32.0-36.0); MCV 89 fL (80-95); MPV 10.9 fL (8.0-11.0); Monocytes % 14.4; Neutrophils % 51.7; Nucleated RBC 1.2 % (0.0-0.3); Platelet Count 147 10^3/uL (130-400); RBC 2.74 10^6/uL (4.36-5.78); RDW 22.4 % (11.8-14.1); RDW-SD 55.8 fL; WBC 4.16 10^3/uL (4.4-10.8)
[2023-02-11 11:10] LABS: Anisocytosis 3+; Diff Comment Diff Reviewed; Hypochromasia 2+; Polychromasia Present
[2023-02-11 11:11] LABS: ALT 25 U/L (16-63); AST 21 U/L (15-37); Albumin 4.1 g/dL (3.4-5.0); Alkaline Phosphatase 63 U/L (46-116); Anion Gap 9.4 mmol/L (3-11); BUN 16 mg/dL (7-18); Bilirubin, Total 0.7 mg/dL (0.2-1.0); CO2 25.6 mmol/L (21.0-32.0); CREATININE 1.6 mg/dL (0.70-1.30); Chloride 105 mmol/L (98-107); Estimated GFR 47.52 (mL/min/1.73m2); FREE T4 1.31 ng/dL (0.76-1.46); Glucose 132 mg/dL (74-106); Poikilocytes 2+; Potassium 4.6 mmol/L (3.5-5.1); Sodium 140 mmol/L (136-145); TSH 3.02 uIU/mL (0.36-3.74); Total Protein 7.2 g/dL (6.4-8.2)
== END 2023-02-11 23:59 | disposition home or self-care (01) ==
LOC: INF 02:30
PROVIDERS: Visit Provider Internal Medicine
DX: C78.7 Secondary malignant neoplasm of liver and intrahepatic bile duct (principal); C64.9 Malignant neoplasm of unspecified kidney, except renal pelvis; Z45.2 Encounter for adjustment and management of vascular access device
CPT/HCPCS: 36591; 80053; 96523; 83036; 84439; 84443; 85025

== ENCOUNTER 2023-03-11 03:05 | Outpatient (RCR) | payer MEDICARE, SELFPAY ==
[2023-03-11] MEDS: Normal Saline Flush 10 ML SYR IVP (13:16)
[2023-03-11] MEDS: Heparin 500 UNITS/5 ML SYRINGE IV (13:21)
[2023-03-11 13:29] LABS: Abs Immature Grans 0.02 10^3/uL (0.0-0.06); Absolute Basophil Count 0.02 10^3/uL (0.0-0.2); Absolute Lymphocyte Count 1.67 10^3/uL (1.2-3.4); Absolute Monocyte Count 0.36 10^3/uL (0.1-0.8); Absolute Neutrophil Count 3.58 10^3/uL (1.2-6.7); Basophils % 0.3; Eosinophils % 1.7; HCT 35.3 % (40.0-50.0); Immature Grans % 0.3; MCH 30.8 pg (27.0-33.0); MCV 91 fL (80-95); MPV 12.4 fL (8.0-11.0); Monocytes % 6.3; Neutrophils % 62.4; Platelet Count 107 10^3/uL (130-400); RDW 14.9 % (11.8-14.1); RDW-SD 50.3 fL; WBC 5.75 10^3/uL (4.4-10.8)
[2023-03-11 13:51] LABS: ALT 21 U/L (16-63); AST 15 U/L (15-37); Albumin 3.9 g/dL (3.4-5.0); Alkaline Phosphatase 55 U/L (46-116); Anion Gap 10.5 mmol/L (3-11); BUN 26 mg/dL (7-18); Bilirubin, Total 0.7 mg/dL (0.2-1.0); CO2 24.5 mmol/L (21.0-32.0); CREATININE 1.6 mg/dL (0.70-1.30); Calcium 8.8 mg/dL (8.5-10.1); Chloride 105 mmol/L (98-107); Estimated GFR 47.52 (mL/min/1.73m2); FREE T4 1.34 ng/dL (0.76-1.46); Glucose 199 mg/dL (74-106); Potassium 4.5 mmol/L (3.5-5.1); Sodium 140 mmol/L (136-145); Total Protein 7.1 g/dL (6.4-8.2)
== END 2023-03-13 23:59 | disposition home or self-care (01) ==
LOC: INF 03:05
PROVIDERS: Visit Provider Internal Medicine
DX: C78.7 Secondary malignant neoplasm of liver and intrahepatic bile duct (principal); C64.9 Malignant neoplasm of unspecified kidney, except renal pelvis; Z79.899 Other long term (current) drug therapy; Z45.2 Encounter for adjustment and management of vascular access device
CPT/HCPCS: 36591; 80053; 84439; 84443; 85025

== ENCOUNTER 2023-04-01 12:00 | Outpatient (RCR) | payer MEDICARE, SELFPAY ==
[2023-03-25 10:32] LABS: Abs Immature Grans 0.04 10^3/uL (0.0-0.06); Absolute Basophil Count 0.03 10^3/uL (0.0-0.2); Absolute Lymphocyte Count 1.95 10^3/uL (1.2-3.4); Absolute Monocyte Count 0.49 10^3/uL (0.1-0.8); Absolute Neutrophil Count 5.17 10^3/uL (1.2-6.7); Basophils % 0.4; Eosinophils % 1.3; HCT 38.7 % (40.0-50.0); HGB 13.4 g/dL (13.5-17.5); Immature Grans % 0.5; Lymphocytes % 25.1; MCH 30.6 pg (27.0-33.0); MCHC 34.6 % (32.0-36.0); MCV 88 fL (80-95); MPV 12.3 fL (8.0-11.0); Monocytes % 6.3; Neutrophils % 66.4; Platelet Count 112 10^3/uL (130-400); RBC 4.38 10^6/uL (4.36-5.78); RDW-SD 41.9 fL; WBC 7.78 10^3/uL (4.4-10.8)
[2023-03-25 10:54] LABS: ALT 20 U/L (16-63); AST 17 U/L (15-37); Alkaline Phosphatase 56 U/L (46-116); Anion Gap 9.1 mmol/L (3-11); BUN 23 mg/dL (7-18); Bilirubin, Total 0.7 mg/dL (0.2-1.0); CO2 28.9 mmol/L (21.0-32.0); CREATININE 1.5 mg/dL (0.70-1.30); Calcium 9.5 mg/dL (8.5-10.1); Chloride 101 mmol/L (98-107); Estimated GFR 51.35 (mL/min/1.73m2); Glucose 209 mg/dL (74-106); Potassium 4.5 mmol/L (3.5-5.1); Sodium 139 mmol/L (136-145); TSH 2.67 uIU/mL (0.36-3.74); Total Protein 7.1 g/dL (6.4-8.2)
[2023-03-25] MEDS: Normal Saline Flush 10 ML SYR IVP (11:19)
[2023-04-01] MEDS: Normal Saline Flush 10 ML SYR IVP (12:10)
[2023-04-01 12:29] LABS: Abs Immature Grans 0.05 10^3/uL (0.0-0.06); Absolute Basophil Count 0.03 10^3/uL (0.0-0.2); Absolute Eosinophil Count 0.11 10^3/uL (0.0-0.7); Absolute Lymphocyte Count 2.03 10^3/uL (1.2-3.4); Absolute Monocyte Count 0.47 10^3/uL (0.1-0.8); Absolute Neutrophil Count 5.43 10^3/uL (1.2-6.7); Basophils % 0.4; Eosinophils % 1.4; HCT 37.1 % (40.0-50.0); HGB 12.7 g/dL (13.5-17.5); Immature Grans % 0.6; MCHC 34.2 % (32.0-36.0); MCV 88 fL (80-95); MPV 12.8 fL (8.0-11.0); Monocytes % 5.8; Neutrophils % 66.8; Platelet Count 118 10^3/uL (130-400); RBC 4.23 10^6/uL (4.36-5.78); RDW 12.9 % (11.8-14.1); WBC 8.12 10^3/uL (4.4-10.8)
[2023-04-01 12:48] LABS: ALT 21 U/L (16-63); AST 18 U/L (15-37); Albumin 3.7 g/dL (3.4-5.0); Alkaline Phosphatase 58 U/L (46-116); Anion Gap 8.2 mmol/L (3-11); BUN 20 mg/dL (7-18); Bilirubin, Total 0.6 mg/dL (0.2-1.0); CO2 26.8 mmol/L (21.0-32.0); CREATININE 1.6 mg/dL (0.70-1.30); Chloride 102 mmol/L (98-107); Estimated GFR 47.52 (mL/min/1.73m2); FREE T4 0.99 ng/dL (0.76-1.46); Glucose 269 mg/dL (74-106); Potassium 4.4 mmol/L (3.5-5.1); Sodium 137 mmol/L (136-145); TSH 4.05 uIU/mL (0.36-3.74); Total Protein 6.9 g/dL (6.4-8.2)
== END 2023-04-13 23:59 | disposition home or self-care (01) ==
LOC: INF 12:00
PROVIDERS: Visit Provider Internal Medicine
DX: C64.9 Malignant neoplasm of unspecified kidney, except renal pelvis (principal); C78.7 Secondary malignant neoplasm of liver and intrahepatic bile duct; Z79.899 Other long term (current) drug therapy; Z45.2 Encounter for adjustment and management of vascular access device
CPT/HCPCS: 36591; 80053; 84439; 84443; 85025

== ENCOUNTER 2023-05-13 01:51 | Outpatient (RCR) | payer BC, SELFPAY ==
[2023-04-15] MEDS: Normal Saline Flush 10 ML SYR IVP (08:22)
[2023-04-15 08:39] LABS: Abs Immature Grans 0.06 10^3/uL (0.0-0.06); Absolute Basophil Count 0.04 10^3/uL (0.0-0.2); Absolute Eosinophil Count 0.14 10^3/uL (0.0-0.7); Absolute Lymphocyte Count 2.26 10^3/uL (1.2-3.4); Absolute Neutrophil Count 4.01 10^3/uL (1.2-6.7); Basophils % 0.6; HCT 36.3 % (40.0-50.0); HGB 12.7 g/dL (13.5-17.5); Immature Grans % 0.9; Lymphocytes % 32.7; MCH 29.5 pg (27.0-33.0); MCV 84 fL (80-95); MPV 11.4 fL (8.0-11.0); Monocytes % 5.8; Platelet Count 120 10^3/uL (130-400); RBC 4.31 10^6/uL (4.36-5.78); RDW 13.3 % (11.8-14.1); RDW-SD 40.5 fL; WBC 6.91 10^3/uL (4.4-10.8)
[2023-04-15 09:03] LABS: ALT 25 U/L (16-63); AST 21 U/L (15-37); Albumin 3.6 g/dL (3.4-5.0); Alkaline Phosphatase 58 U/L (46-116); Anion Gap 7.9 mmol/L (3-11); BUN 16 mg/dL (7-18); Bilirubin, Total 0.7 mg/dL (0.2-1.0); CO2 27.1 mmol/L (21.0-32.0); CREATININE 1.5 mg/dL (0.70-1.30); Chloride 102 mmol/L (98-107); Estimated GFR 51.35 (mL/min/1.73m2); FREE T4 0.56 ng/dL (0.76-1.46); Glucose 195 mg/dL (74-106); Potassium 4.2 mmol/L (3.5-5.1); Sodium 137 mmol/L (136-145); Total Protein 6.9 g/dL (6.4-8.2)
[2023-04-15 09:38] LABS: TSH 124.61 uIU/mL (0.36-3.74)
[2023-04-22] MEDS: Normal Saline Flush 10 ML SYR IVP (11:47)
[2023-04-22 12:13] LABS: Abs Immature Grans 0.03 10^3/uL (0.0-0.06); Absolute Basophil Count 0.03 10^3/uL (0.0-0.2); Absolute Eosinophil Count 0.13 10^3/uL (0.0-0.7); Absolute Neutrophil Count 4.01 10^3/uL (1.2-6.7); Basophils % 0.4; Eosinophils % 1.9; HGB 12.5 g/dL (13.5-17.5); Immature Grans % 0.4; Lymphocytes % 29.9; MCH 29.6 pg (27.0-33.0); MCHC 34.7 % (32.0-36.0); MCV 85 fL (80-95); MPV 11.2 fL (8.0-11.0); Monocytes % 7.5; Neutrophils % 59.9; Platelet Count 124 10^3/uL (130-400); RBC 4.22 10^6/uL (4.36-5.78); RDW 13.7 % (11.8-14.1); RDW-SD 42.2 fL
[2023-04-22 12:38] LABS: ALT 20 U/L (16-63); AST 20 U/L (15-37); Albumin 3.9 g/dL (3.4-5.0); Alkaline Phosphatase 60 U/L (46-116); Anion Gap 8.1 mmol/L (3-11); BUN 22 mg/dL (7-18); Bilirubin, Total 0.8 mg/dL (0.2-1.0); CO2 26.9 mmol/L (21.0-32.0); CREATININE 1.8 mg/dL (0.70-1.30); Calcium 9.4 mg/dL (8.5-10.1); Chloride 102 mmol/L (98-107); Estimated GFR 41.26 (mL/min/1.73m2); Glucose 234 mg/dL (74-106); Potassium 4.3 mmol/L (3.5-5.1); Sodium 137 mmol/L (136-145); TSH 87.56 uIU/mL (0.36-3.74); Total Protein 7.1 g/dL (6.4-8.2)
[2023-04-30] MEDS: Normal Saline Flush 10 ML SYR IVP (12:08)
[2023-04-30 12:25] LABS: Abs Immature Grans 0.18 10^3/uL (0.0-0.06); Absolute Basophil Count 0.06 10^3/uL (0.0-0.2); Absolute Lymphocyte Count 1.89 10^3/uL (1.2-3.4); Absolute Monocyte Count 0.51 10^3/uL (0.1-0.8); Absolute Neutrophil Count 4.01 10^3/uL (1.2-6.7); Basophils % 0.9; Eosinophils % 1.5; HGB 11.9 g/dL (13.5-17.5); Immature Grans % 2.7; MCH 29.6 pg (27.0-33.0); MCV 85 fL (80-95); MPV 10.6 fL (8.0-11.0); Monocytes % 7.6; Neutrophils % 59.3; Platelet Count 120 10^3/uL (130-400); RBC 4.02 10^6/uL (4.36-5.78); RDW 13.9 % (11.8-14.1); RDW-SD 42.2 fL; WBC 6.75 10^3/uL (4.4-10.8)
[2023-04-30 12:48] LABS: ALT 18 U/L (16-63); AST 24 U/L (15-37); Albumin 3.7 g/dL (3.4-5.0); Alkaline Phosphatase 60 U/L (46-116); Anion Gap 12.3 mmol/L (3-11); BUN 18 mg/dL (7-18); Bilirubin, Total 0.8 mg/dL (0.2-1.0); CO2 24.7 mmol/L (21.0-32.0); CREATININE 1.5 mg/dL (0.70-1.30); Calcium 8.9 mg/dL (8.5-10.1); Chloride 102 mmol/L (98-107); Estimated GFR 51.35 (mL/min/1.73m2); FREE T4 0.72 ng/dL (0.76-1.46); Glucose 255 mg/dL (74-106); Potassium 4.3 mmol/L (3.5-5.1); Sodium 139 mmol/L (136-145); Total Protein 6.7 g/dL (6.4-8.2)
[2023-04-30 13:13] LABS: TSH 125.45 uIU/mL (0.36-3.74)
[2023-05-13] MEDS: Normal Saline Flush 10 ML SYR IVP (12:11)
[2023-05-13 12:24] LABS: Absolute Basophil Count 0.06 10^3/uL (0.0-0.2); Absolute Lymphocyte Count 2.48 10^3/uL (1.2-3.4); Absolute Monocyte Count 0.45 10^3/uL (0.1-0.8); Absolute Neutrophil Count 3.51 10^3/uL (1.2-6.7); Basophils % 0.9; Eosinophils % 1.5; HCT 34.1 % (40.0-50.0); HGB 11.9 g/dL (13.5-17.5); Immature Grans % 1.5; MCH 29.2 pg (27.0-33.0); MCHC 34.9 % (32.0-36.0); MCV 84 fL (80-95); MPV 11.3 fL (8.0-11.0); Monocytes % 6.7; Neutrophils % 52.4; Platelet Count 142 10^3/uL (130-400); RBC 4.07 10^6/uL (4.36-5.78); RDW-SD 44.2 fL
[2023-05-13 12:39] LABS: ALT 21 U/L (16-63); AST 22 U/L (15-37); Albumin 3.9 g/dL (3.4-5.0); Alkaline Phosphatase 58 U/L (46-116); Anion Gap 10.3 mmol/L (3-11); BUN 16 mg/dL (7-18); Bilirubin, Total 0.8 mg/dL (0.2-1.0); CO2 25.7 mmol/L (21.0-32.0); CREATININE 1.5 mg/dL (0.70-1.30); Chloride 104 mmol/L (98-107); Estimated GFR 51.35 (mL/min/1.73m2); FREE T4 0.83 ng/dL (0.76-1.46); Glucose 151 mg/dL (74-106); Potassium 4.3 mmol/L (3.5-5.1); Sodium 140 mmol/L (136-145); Total Protein 7.1 g/dL (6.4-8.2)
[2023-05-13 13:00] LABS: TSH 84.74 uIU/mL (0.36-3.74)
== END 2023-05-14 23:59 | disposition home or self-care (01) ==
LOC: INF 01:51
PROVIDERS: Visit Provider Internal Medicine
DX: C64.9 Malignant neoplasm of unspecified kidney, except renal pelvis (principal); C78.7 Secondary malignant neoplasm of liver and intrahepatic bile duct; Z45.2 Encounter for adjustment and management of vascular access device
CPT/HCPCS: 36591; 80053; 84439; 84443; 85025

== ENCOUNTER → 2023-06-12 03:11 | Outpatient (CLI) | payer MEDICARE, SELFPAY ==
--- NOTE | 2023-06-12 | DI.CT_ITS ---
Exam(s) CT CHEST/ABD/PEL W EXAM: CT CHEST/ABD/PEL W CLINICAL HISTORY: METS UROTHELIAL CA, C79.10, HYPOTHYROIDISM DUE TO DRUGS, E03.2. TECHNIQUE: Imaging Protocol: Axial computed tomography images with coronal and sagittal reformatted images were created and reviewed CONTRAST MATERIAL: Intravenous: Omnipaque 350 Contrast volume:100 ml Oral: yes / COMPARISON: CT CT CHEST/ABD/PEL W from 02/07/2023 FINDINGS: CHEST: Tracheobronchial tree: Patent where visualized. Pulmonary parenchyma: No consolidation. No change in lobulated nodules in the right middle lobe. No new pulmonary nodules. Pleura: No effusion or pneumothorax. Lymph nodes: Within normal limits. Aorta: Atherosclerotic changes. Mildly dilated to 4.2 cm. Heart: Normal size. Coronary artery calcifications. No pericardial effusion. Pulmonary arteries: Well opacified. No evidence of emboli. Bones: Degenerative changes. Stable sclerotic lesion in T9..No compression fractures. Soft tissues: Port over right upper chest. ABDOMEN and PELVIS: Liver: Normal density. Interval increase in size and conspicuity of multiple liver metastases. The l arger lesion in the lateral right lobe now measures 4.1 cm compared with 3.4 cm on the prior exam. A large lesion inferiorly in the right lobe measures 4.3 cm compared with 3.4 cm on the prior exam. Gallbladder and biliary tract: Status post cholecystectomy. No biliary dilatation. Pancreas: Fatty atrophy in the head. No abnormal calcifications or inflammatory process. Spleen: Stable splenic enlargement. Enhancing lesion again noted in the inferior spleen, unchanged. Kidneys: Status post right nephrectomy. No radiodense stones. No obstructive uropathy. No suspiciou s masses seen. Stable cysts in the left kidney. Adrenal glands: Status post right adrenalectomy. No masses seen. Aorta: Abdominal portion non-dilated. Lymph nodes: Within normal limits. Soft tissues: Fatty containing bilateral inguinal hernias. Bladder: Mild wall thickening. No stones or masses. Bowel: No obstruction or bowel wall thickening. Peritoneal cavity: No ascites. Mild interval increase in size omental mass seen near the level of th e umbilicus anteriorly, now measuring 3.3 cm in diameter. Nodular thickening again noted in the ante rior abdominal wall at this level. No mesenteric inflammatory response. Bones: Stable mild compression of the superior endplate of L1. Degenerative changes greatest at L5-S 1. Reproductive organs: Within normal limits. IMPRESSION: Chest: Stable size and appearance of lobulated nodules in the right middle lobe. No new findings. Abdomen pelvis: Significant interval increase in size of liver metastases. Mild increase in size of omental mass. RADIATION DOSE DELIVERED: 1,753.34mGy.cm Total DLP DATA REPOSITORY: All CT scans at this facility are submitted to the National Radiology Data Registry (NRDR) Dose Index Registry (DIR) with the [employer] (ACR). RADIATION OPTIMIZATION: All CT scans at this facility use at least one of these dose optimization te chniques: automated exposure control; mA and/or kV adjustment per patient size (includes targeted exa ms where dose is matched to clinical indication); or iterative reconstruction.
[2023-06-12] MEDS: Normal Saline - Diluent 50 ML VIAL IJ (12:55)
[2023-06-12] MEDS: Omnipaque 350 MG/ML 100 ML BTL IJ (12:56)
[2023-06-12] MEDS: Normal Saline Flush 10 ML SYR IVP (12:59)
== END ==
PROVIDERS: Visit Provider Nurse Practitioner
DX: C79.10 Secondary malignant neoplasm of unspecified urinary organs; E03.2 Hypothyroidism due to medicaments and other exogenous substances
CPT/HCPCS: 74177; 71260; J3490

== ENCOUNTER 2023-06-12 04:53 | Outpatient (RCR) | payer MEDICARE, SELFPAY ==
[2023-05-20] MEDS: Normal Saline Flush 10 ML SYR IVP (09:36)
[2023-05-20 10:29] LABS: Abs Immature Grans 0.04 10^3/uL (0.0-0.06); Absolute Basophil Count 0.03 10^3/uL (0.0-0.2); Absolute Eosinophil Count 0.13 10^3/uL (0.0-0.7); Absolute Lymphocyte Count 1.69 10^3/uL (1.2-3.4); Absolute Monocyte Count 0.41 10^3/uL (0.1-0.8); Absolute Neutrophil Count 3.32 10^3/uL (1.2-6.7); Basophils % 0.5; Eosinophils % 2.3; HCT 33.8 % (40.0-50.0); HGB 11.9 g/dL (13.5-17.5); Immature Grans % 0.7; Lymphocytes % 30.1; MCH 29.8 pg (27.0-33.0); MCHC 35.2 % (32.0-36.0); MCV 85 fL (80-95); Monocytes % 7.3; Neutrophils % 59.1; Platelet Count 115 10^3/uL (130-400); RDW 15.2 % (11.8-14.1); RDW-SD 46.5 fL; WBC 5.62 10^3/uL (4.4-10.8)
[2023-05-20 10:54] LABS: ALT 21 U/L (16-63); AST 20 U/L (15-37); Albumin 3.7 g/dL (3.4-5.0); Alkaline Phosphatase 57 U/L (46-116); Anion Gap 10.3 mmol/L (3-11); BUN 26 mg/dL (7-18); Bilirubin, Total 0.7 mg/dL (0.2-1.0); CO2 26.7 mmol/L (21.0-32.0); CREATININE 1.5 mg/dL (0.70-1.30); Calcium 8.9 mg/dL (8.5-10.1); Chloride 102 mmol/L (98-107); Estimated GFR 51.35 (mL/min/1.73m2); FREE T4 1.08 ng/dL (0.76-1.46); Glucose 265 mg/dL (74-106); Potassium 4.4 mmol/L (3.5-5.1); Sodium 139 mmol/L (136-145); TSH 20.92 uIU/mL (0.36-3.74); Total Protein 6.9 g/dL (6.4-8.2)
[2023-05-27] MEDS: Normal Saline Flush 10 ML SYR IVP (12:00)
[2023-05-27 12:05] LABS: Abs Immature Grans 0.13 10^3/uL (0.0-0.06); Absolute Basophil Count 0.05 10^3/uL (0.0-0.2); Absolute Eosinophil Count 0.09 10^3/uL (0.0-0.7); Absolute Lymphocyte Count 2.12 10^3/uL (1.2-3.4); Absolute Monocyte Count 0.43 10^3/uL (0.1-0.8); Absolute Neutrophil Count 4.77 10^3/uL (1.2-6.7); Basophils % 0.7; Eosinophils % 1.2; HCT 33.4 % (40.0-50.0); HGB 11.8 g/dL (13.5-17.5); Immature Grans % 1.7; Lymphocytes % 27.9; MCH 29.5 pg (27.0-33.0); MCHC 35.3 % (32.0-36.0); MCV 84 fL (80-95); MPV 10.7 fL (8.0-11.0); Monocytes % 5.7; Neutrophils % 62.8; Platelet Count 108 10^3/uL (130-400); RDW 15.2 % (11.8-14.1); RDW-SD 45.2 fL; WBC 7.59 10^3/uL (4.4-10.8)
[2023-05-27 12:36] LABS: ALT 22 U/L (16-63); AST 25 U/L (15-37); Albumin 3.9 g/dL (3.4-5.0); Alkaline Phosphatase 66 U/L (46-116); Anion Gap 12.7 mmol/L (3-11); BUN 28 mg/dL (7-18); CO2 25.3 mmol/L (21.0-32.0); CREATININE 1.4 mg/dL (0.70-1.30); Chloride 102 mmol/L (98-107); Estimated GFR 55.43 (mL/min/1.73m2); Glucose 185 mg/dL (74-106); Potassium 4.3 mmol/L (3.5-5.1); Sodium 140 mmol/L (136-145); Total Protein 7.1 g/dL (6.4-8.2)
[2023-06-10] MEDS: Normal Saline Flush 10 ML SYR IVP (12:24)
[2023-06-10 12:33] LABS: Abs Immature Grans 0.06 10^3/uL (0.0-0.06); Absolute Basophil Count 0.04 10^3/uL (0.0-0.2); Absolute Eosinophil Count 0.05 10^3/uL (0.0-0.7); Absolute Lymphocyte Count 2.18 10^3/uL (1.2-3.4); Absolute Neutrophil Count 3.82 10^3/uL (1.2-6.7); Basophils % 0.6; Eosinophils % 0.8; HCT 33.1 % (40.0-50.0); HGB 11.4 g/dL (13.5-17.5); Immature Grans % 0.9; Lymphocytes % 33.8; MCH 29.2 pg (27.0-33.0); MCHC 34.4 % (32.0-36.0); MCV 85 fL (80-95); MPV 9.9 fL (8.0-11.0); Monocytes % 4.7; Neutrophils % 59.2; Platelet Count 116 10^3/uL (130-400); RDW 17.1 % (11.8-14.1); WBC 6.45 10^3/uL (4.4-10.8)
[2023-06-10 13:20] LABS: ALT 22 U/L (16-63); AST 21 U/L (15-37); Albumin 3.8 g/dL (3.4-5.0); Alkaline Phosphatase 62 U/L (46-116); BUN 28 mg/dL (7-18); Bilirubin, Total 0.8 mg/dL (0.2-1.0); CREATININE 1.3 mg/dL (0.70-1.30); Calcium 8.8 mg/dL (8.5-10.1); Chloride 105 mmol/L (98-107); Estimated GFR 60.59 (mL/min/1.73m2); FREE T4 1.22 ng/dL (0.76-1.46); Glucose 145 mg/dL (74-106); Potassium 4.4 mmol/L (3.5-5.1); Sodium 139 mmol/L (136-145); TSH 5.54 uIU/Ml (0.36-3.74); Total Protein 6.8 g/dL (6.4-8.2)
[2023-06-12] MEDS: Normal Saline Flush 10 ML SYR IVP (10:04)
== END 2023-06-12 23:59 | disposition home or self-care (01) ==
LOC: INF 04:53
PROVIDERS: Visit Provider Internal Medicine
DX: C78.7 Secondary malignant neoplasm of liver and intrahepatic bile duct (principal); C64.9 Malignant neoplasm of unspecified kidney, except renal pelvis
CPT/HCPCS: 36591; 80053; 96523; 84439; 84443; 85025

== ENCOUNTER 2023-06-24 03:55 | Outpatient (RCR) | payer MEDICARE, SELFPAY ==
[2023-06-17 12:55] LABS: Abs Immature Grans 0.04 10^3/uL (0.0-0.06); Absolute Basophil Count 0.03 10^3/uL (0.0-0.2); Absolute Eosinophil Count 0.07 10^3/uL (0.0-0.7); Absolute Lymphocyte Count 2.17 10^3/uL (1.2-3.4); Absolute Neutrophil Count 3.61 10^3/uL (1.2-6.7); Basophils % 0.5; Eosinophils % 1.1; HCT 35.1 % (40.0-50.0); HGB 12.2 g/dL (13.5-17.5); Immature Grans % 0.6; Lymphocytes % 34.3; MCH 29.4 pg (27.0-33.0); MCHC 34.8 % (32.0-36.0); MCV 85 fL (80-95); MPV 11.1 fL (8.0-11.0); Monocytes % 6.3; Neutrophils % 57.2; Platelet Count 109 10^3/uL (130-400); RBC 4.15 10^6/uL (4.36-5.78); RDW-SD 52.1 fL; WBC 6.32 10^3/uL (4.4-10.8)
[2023-06-17 13:18] LABS: ALT 18 U/L (16-63); AST 19 U/L (15-37); Albumin 3.8 g/dL (3.4-5.0); Alkaline Phosphatase 64 U/L (46-116); Anion Gap 7.7 mmol/L (3-11); BUN 28 mg/dL (7-18); Bilirubin, Total 1.1 mg/dL (0.2-1.0); CO2 27.3 mmol/L (21.0-32.0); CREATININE 1.3 mg/dL (0.70-1.30); Calcium 9.2 mg/dL (8.5-10.1); Chloride 103 mmol/L (98-107); Estimated GFR 60.59 (mL/min/1.73m2); FREE T4 1.24 ng/dL (0.76-1.46); Glucose 133 mg/dL (74-106); Potassium 4.4 mmol/L (3.5-5.1); Sodium 138 mmol/L (136-145); TSH 4.51 uIU/Ml (0.36-3.74)
== END 2023-07-13 23:59 | disposition home or self-care (01) ==
LOC: INF 03:55
PROVIDERS: Visit Provider Internal Medicine
DX: C78.7 Secondary malignant neoplasm of liver and intrahepatic bile duct (principal); C64.9 Malignant neoplasm of unspecified kidney, except renal pelvis; Z45.2 Encounter for adjustment and management of vascular access device; Z79.899 Other long term (current) drug therapy
CPT/HCPCS: 36591; 80053; 84439; 84443; 85025

== ENCOUNTER 2023-08-12 05:29 | Outpatient (RCR) | payer MEDICARE, SELFPAY ==
[2023-07-15] MEDS: Normal Saline Flush 10 ML SYR IVP (08:14)
[2023-07-15 08:31] LABS: Abs Immature Grans 0.01 10^3/uL (0.0-0.06); Absolute Basophil Count 0.01 10^3/uL (0.0-0.2); Absolute Eosinophil Count 0.09 10^3/uL (0.0-0.7); Absolute Lymphocyte Count 2.14 10^3/uL (1.2-3.4); Absolute Monocyte Count 0.29 10^3/uL (0.1-0.8); Absolute Neutrophil Count 3.39 10^3/uL (1.2-6.7); Basophils % 0.2; Eosinophils % 1.5; HCT 38.1 % (40.0-50.0); HGB 12.7 g/dL (13.5-17.5); Immature Grans % 0.2; Lymphocytes % 36.1; MCH 29.2 pg (27.0-33.0); MCHC 33.3 % (32.0-36.0); MCV 88 fL (80-95); MPV 11.9 fL (8.0-11.0); Monocytes % 4.9; Neutrophils % 57.1; Platelet Count 117 10^3/uL (130-400); RBC 4.35 10^6/uL (4.36-5.78); RDW-SD 44.8 fL; WBC 5.93 10^3/uL (4.4-10.8)
[2023-07-15 08:53] LABS: ALT 21 U/L (16-63); AST 18 U/L (15-37); Albumin 3.9 g/dL (3.4-5.0); Alkaline Phosphatase 70 U/L (46-116); Anion Gap 10.2 mmol/L (3-11); BUN 21 mg/dL (7-18); Bilirubin, Total 0.6 mg/dL (0.2-1.0); CO2 26.8 mmol/L (21.0-32.0); CREATININE 1.3 mg/dL (0.70-1.30); Chloride 105 mmol/L (98-107); Estimated GFR 60.59 (mL/min/1.73m2); FREE T4 1.38 ng/dL (0.76-1.46); Glucose 144 mg/dL (74-106); Potassium 4.6 mmol/L (3.5-5.1); Sodium 142 mmol/L (136-145); Total Protein 7.1 g/dL (6.4-8.2)
[2023-07-22] MEDS: Normal Saline Flush 10 ML SYR IVP (07:55)
[2023-07-22 08:33] LABS: Abs Immature Grans 0.04 10^3/uL (0.0-0.06); Absolute Basophil Count 0.03 10^3/uL (0.0-0.2); Absolute Eosinophil Count 0.07 10^3/uL (0.0-0.7); Absolute Lymphocyte Count 1.47 10^3/uL (1.2-3.4); Absolute Monocyte Count 0.17 10^3/uL (0.1-0.8); Absolute Neutrophil Count 1.96 10^3/uL (1.2-6.7); Basophils % 0.8; Eosinophils % 1.9; HCT 34.4 % (40.0-50.0); HGB 11.7 g/dL (13.5-17.5); Immature Grans % 1.1; Lymphocytes % 39.3; MCH 29.4 pg (27.0-33.0); MCV 86 fL (80-95); MPV 10.9 fL (8.0-11.0); Monocytes % 4.5; Neutrophils % 52.4; Platelet Count 117 10^3/uL (130-400); RBC 3.98 10^6/uL (4.36-5.78); RDW 13.2 % (11.8-14.1); RDW-SD 42.1 fL; WBC 3.74 10^3/uL (4.4-10.8)
[2023-07-22 09:01] LABS: ALT 17 U/L (16-63); AST 12 U/L (15-37); Albumin 3.5 g/dL (3.4-5.0); Alkaline Phosphatase 73 U/L (46-116); Anion Gap 6.6 mmol/L (3-11); BUN 23 mg/dL (7-18); Bilirubin, Total 0.4 mg/dL (0.2-1.0); CO2 28.4 mmol/L (21.0-32.0); CREATININE 1.4 mg/dL (0.70-1.30); Calcium 8.5 mg/dL (8.5-10.1); Chloride 103 mmol/L (98-107); Estimated GFR 55.43 (mL/min/1.73m2); FREE T4 1.18 ng/dL (0.76-1.46); Glucose 187 mg/dL (74-106); Potassium 4.5 mmol/L (3.5-5.1); Sodium 138 mmol/L (136-145); Total Protein 6.6 g/dL (6.4-8.2)
[2023-08-05] MEDS: Normal Saline Flush 10 ML SYR IVP (10:42)
[2023-08-05 10:55] LABS: Abs Immature Grans 0.02 10^3/uL (0.0-0.06); Absolute Basophil Count 0.02 10^3/uL (0.0-0.2); Absolute Eosinophil Count 0.09 10^3/uL (0.0-0.7); Absolute Monocyte Count 0.25 10^3/uL (0.1-0.8); Basophils % 0.5; Eosinophils % 2.1; HCT 33.9 % (40.0-50.0); HGB 11.5 g/dL (13.5-17.5); Immature Grans % 0.5; Lymphocytes % 46.1; MCH 29.3 pg (27.0-33.0); MCHC 33.9 % (32.0-36.0); MCV 87 fL (80-95); MPV 10.9 fL (8.0-11.0); Monocytes % 5.8; Platelet Count 115 10^3/uL (130-400); RBC 3.92 10^6/uL (4.36-5.78); RDW 13.8 % (11.8-14.1); RDW-SD 41.6 fL; WBC 4.34 10^3/uL (4.4-10.8)
[2023-08-05 10:57] LABS: Absolute Neutrophil Count 1.95 10^3/uL (1.2-6.7)
[2023-08-05 11:21] LABS: ALT 23 U/L (16-63); AST 15 U/L (15-37); Albumin 3.8 g/dL (3.4-5.0); Alkaline Phosphatase 79 U/L (46-116); Anion Gap 10.2 mmol/L (3-11); BUN 20 mg/dL (7-18); Bilirubin, Total 0.4 mg/dL (0.2-1.0); CO2 25.8 mmol/L (21.0-32.0); CREATININE 1.3 mg/dL (0.70-1.30); Calcium 8.5 mg/dL (8.5-10.1); Chloride 107 mmol/L (98-107); Estimated GFR 60.59 (mL/min/1.73m2); FREE T4 1.35 ng/dL (0.76-1.46); Glucose 139 mg/dL (74-106); Potassium 4.6 mmol/L (3.5-5.1); Sodium 143 mmol/L (136-145); TSH 2.26 uIU/Ml (0.36-3.74); Total Protein 6.8 g/dL (6.4-8.2)
[2023-08-05 12:51] LABS: Magnesium 2.1 mg/dL (1.8-2.4)
[2023-08-12 12:17] LABS: Absolute Basophil Count 0.03 10^3/uL (0.0-0.2); Absolute Eosinophil Count 0.05 10^3/uL (0.0-0.7); Absolute Lymphocyte Count 2.34 10^3/uL (1.2-3.4); Absolute Monocyte Count 0.29 10^3/uL (0.1-0.8); Absolute Neutrophil Count 3.36 10^3/uL (1.2-6.7); Basophils % 0.5; Eosinophils % 0.8; HCT 35.1 % (40.0-50.0); Immature Grans % 1.6; Lymphocytes % 37.9; MCH 29.1 pg (27.0-33.0); MCHC 34.2 % (32.0-36.0); MCV 85 fL (80-95); MPV 10.6 fL (8.0-11.0); Monocytes % 4.7; Neutrophils % 54.5; Platelet Count 131 10^3/uL (130-400); RBC 4.13 10^6/uL (4.36-5.78); RDW 13.9 % (11.8-14.1); RDW-SD 42.3 fL; WBC 6.17 10^3/uL (4.4-10.8)
[2023-08-12] MEDS: Normal Saline Flush 10 ML SYR IVP (12:20)
[2023-08-12 12:46] LABS: ALT 23 U/L (16-63); AST 14 U/L (15-37); Albumin 3.9 g/dL (3.4-5.0); Alkaline Phosphatase 79 U/L (46-116); BUN 23 mg/dL (7-18); Bilirubin, Total 0.4 mg/dL (0.2-1.0); CREATININE 1.3 mg/dL (0.70-1.30); Calcium 8.8 mg/dL (8.5-10.1); Chloride 107 mmol/L (98-107); Estimated GFR 60.59 (mL/min/1.73m2); FREE T4 1.46 ng/dL (0.76-1.46); Glucose 140 mg/dL (74-106); Potassium 4.8 mmol/L (3.5-5.1); Sodium 142 mmol/L (136-145); TSH 1.25 uIU/Ml (0.36-3.74)
== END 2023-08-12 23:59 | disposition home or self-care (01) ==
LOC: INF 05:29
PROVIDERS: Visit Provider Internal Medicine
DX: C78.7 Secondary malignant neoplasm of liver and intrahepatic bile duct (principal); C64.9 Malignant neoplasm of unspecified kidney, except renal pelvis; E03.9 Hypothyroidism, unspecified; Z45.2 Encounter for adjustment and management of vascular access device
CPT/HCPCS: 36591; 80053; 83735; 84439; 84443; 85025

== ENCOUNTER → 2023-08-29 01:27 | Outpatient (CLI) | payer MEDICARE, SELFPAY ==
--- NOTE | 2023-08-29 | DI.CT_ITS ---
Exam(s) CT CHEST/ABD/PEL W EXAM: CT CHEST/ABD/PEL W CLINICAL HISTORY: METASTATIC UROTHELIAL CA,C79.10,RESTAGING TECHNIQUE: Imaging Protocol: Axial computed tomography images with coronal and sagittal reformatted images were created and reviewed CONTRAST MATERIAL: Intravenous: Omnipaque 350 contrast volume:80 mL Oral: Yes COMPARISON: CT CT CHEST/ABD/PELVIS W/CONTRAST from 11/11/[address] CHEST/ABD/PEL W from 06/12/2023 FINDINGS: CHEST: Tracheobronchial tree: Patent where visualized. Pulmonary parenchyma: Calcified granuloma present. The lobulated mass in the right middle lobe is un changed. It measures 3.2 x 1.4 cm. (Series 5, image 323). No other pulmonary nodules are present. No focal consolidating infiltrates are seen. Visualized thyroid gland: Unremarkable. Mediastinum and Germaine: No dominant adenopathy or fluid collection. The esophagus is unremarkable. Pleura: No effusion or pneumothorax. Heart: The heart is not dilated. Coronary artery calcifications are present. No pericardial effusion . Pulmonary arteries: No pulmonary emboli are identified. Aorta: The ascending thoracic aorta measures 4.3 x 4.0 cm. No evidence of dissection. Atherosclerot ic calcification is present. Lymph nodes: Within normal limits. Tubes, Catheters, and Lines: The patient has a right-sided Vqxoxp-I-Aclp catheter. Soft tissues: Unremarkable. Bones:There is a sclerotic focus in the T9 vertebral body which is more prominent. Metastatic diseas e should be considered. ABDOMEN: Liver: There has been interval increase in size of the hepatic masses. The mass in the superior aspe ct of the right lobe of the liver (series 12, image 96) measures 2.7 x 4.9 cm. This compares to 2.5 x 4.1 cm. The mass more inferiorly in the right lobe of the liver measures 5.1 x 3.4 cm (series 12, image 201). This compares to 4.4 x 2.9 cm. There is a mass in the posterior segment of the right lo be of the liver which measures 2.1 x 1.4 cm. This compares to 1.5 x 1.2 cm. (Series 12, image 257). Portal, Superior Mesenteric, and Splenic Veins: Unremarkable. Gallbladder and Biliary Tract: Status post cholecystectomy. No significant biliary ductal dilatation . Pancreas: Normal density, no abnormal calcifications or inflammatory process. Spleen: The spleen measures 14 cm long. Adrenals: The left adrenal gland is unremarkable. Kidneys: The right kidney is absent. There are cysts seen on the left kidney which appears simple. No follow-up is recommended. No solid masses are identified. No nephrolithiasis. Abdominal Aorta: Abdominal portion non-dilated. Atherosclerotic calcification is present. Bowel: No obstruction or bowel wall thickening. No evidence of appendicitis. Peritoneal Cavity: There is a stable nodule seen medial to the right lobe of the liver. There is a t race amount of free fluid in the pelvis. The soft tissue mass in the anterior abdomen measures 3.0 x 3.5 cm. This compares to 3.1 x 3.3 cm. No free air. Lymph Nodes: Within normal limits. Bones: Within normal limits for the patient's age. No aggressive osseous lesions. Soft Tissues: Small fat containing inguinal hernias bilaterally. PELVIS: Bladder: There is diffuse thickening of the wall of the urinary bladder. Reproductive Organs: Unremarkable as visualized. Lymph Nodes: Within normal limits. Bones: Within normal limits. IMPRESSION: 1. Interval increase in size of the hepatic metastases. 2. Stable soft tissue mass in the anterior abdomen. 3. Stable right middle lobe soft tissue mass. No new pulmonary nodules. 4. Increased size of an area of sclerosis in the T9 vertebral body. Metastatic disease cannot be exc luded. Bone scan should be considered for further evaluation. RADIATION DOSE DELIVERED: 2,019.76mGy.cm Total DLP DATA REPOSITORY: All CT scans at this facility are submitted to the National Radiology Data Registry (NRDR) Dose Index Registry (DIR) with the [employer] (ACR). RADIATION OPTIMIZATION: All CT scans at this facility use at least one of these dose optimization te chniques: automated exposure control; mA and/or kV adjustment per patient size (includes targeted exa ms where dose is matched to clinical indication); or iterative reconstruction.
[2023-08-29] MEDS: Barium Sulfate 2% W/V-Berry Smoothie 450 ML BTL PO (11:12)
[2023-08-29] MEDS: Barium Sulfate 2% W/V-Creamy Vanilla Smoothie 450 ML BTL PO (11:13)
[2023-08-29] MEDS: Normal Saline - Diluent 50 ML VIAL IJ (13:27)
[2023-08-29] MEDS: Omnipaque 350 MG/ML 100 ML BTL IJ (13:27)
== END ==
PROVIDERS: Visit Provider Internal Medicine
DX: C79.10 Secondary malignant neoplasm of unspecified urinary organs (principal)
CPT/HCPCS: 74177; 71260; J3490

== ENCOUNTER 2023-09-02 04:55 | Outpatient (RCR) | payer MEDICARE, SELFPAY ==
[2023-08-26 08:52] LABS: Abs Immature Grans 0.03 10^3/uL (0.0-0.06); Absolute Basophil Count 0.03 10^3/uL (0.0-0.2); Absolute Lymphocyte Count 2.11 10^3/uL (1.2-3.4); Absolute Neutrophil Count 3.31 10^3/uL (1.2-6.7); Basophils % 0.5 %; Eosinophils % 1.7 %; HCT 34.5 % (40.0-50.0); HGB 11.8 g/dL (13.5-17.5); Immature Grans % 0.5 %; Lymphocytes % 35.9 %; MCH 28.9 pg (27.0-33.0); MCHC 34.2 % (32.0-36.0); MCV 85 fL (80-95); MPV 12.3 fL (8.0-11.0); Monocytes % 5.1 %; Neutrophils % 56.3 %; Platelet Count 139 10^3/uL (130-400); RBC 4.08 10^6/uL (4.36-5.78); RDW 15.2 % (11.8-14.1); RDW-SD 45.8 fL; WBC 5.88 10^3/uL (4.4-10.8)
[2023-08-26 09:18] LABS: ALT 24 U/L (16-63); AST 16 U/L (15-37); Albumin 3.8 g/dL (3.4-5.0); Alkaline Phosphatase 76 U/L (46-116); Anion Gap 10.5 mmol/L (3-11); BUN 27 mg/dL (7-18); Bilirubin, Total 0.5 mg/dL (0.2-1.0); CO2 26.5 mmol/L (21.0-32.0); CREATININE 1.4 mg/dL (0.70-1.30); Calcium 8.7 mg/dL (8.5-10.1); Chloride 107 mmol/L (98-107); Estimated GFR 55.43 (mL/min/1.73m2); FREE T4 1.28 ng/dL (0.76-1.46); Glucose 166 mg/dL (74-106); Potassium 4.3 mmol/L (3.5-5.1); Sodium 144 mmol/L (136-145); TSH 0.78 uIU/Ml (0.36-3.74)
[2023-08-26] MEDS: Normal Saline Flush 10 ML SYR IVP (09:18)
[2023-08-29] MEDS: Normal Saline Flush 10 ML SYR IVP (10:39)
== END 2023-09-12 23:59 | disposition home or self-care (01) ==
LOC: INF 04:55
PROVIDERS: Visit Provider Internal Medicine
DX: C78.7 Secondary malignant neoplasm of liver and intrahepatic bile duct (principal); Z45.2 Encounter for adjustment and management of vascular access device; Z79.899 Other long term (current) drug therapy; C64.9 Malignant neoplasm of unspecified kidney, except renal pelvis
CPT/HCPCS: 36591; 80053; 96523; 84439; 84443; 85025

== ENCOUNTER 2023-10-07 10:00 | Outpatient (RCR) | payer MEDICARE, SELFPAY ==
[2023-09-16] MEDS: Normal Saline Flush 10 ML SYR IVP (10:15)
[2023-09-16 10:47] LABS: Abs Immature Grans 0.02 10^3/uL (0.0-0.06); Absolute Basophil Count 0.01 10^3/uL (0.0-0.2); Absolute Eosinophil Count 0.07 10^3/uL (0.0-0.7); Absolute Lymphocyte Count 1.92 10^3/uL (1.2-3.4); Absolute Monocyte Count 0.33 10^3/uL (0.1-0.8); Absolute Neutrophil Count 3.65 10^3/uL (1.2-6.7); Basophils % 0.2 %; Eosinophils % 1.2 %; HCT 33.2 % (40.0-50.0); HGB 11.3 g/dL (13.5-17.5); Immature Grans % 0.3 %; MCV 85 fL (80-95); MPV 10.3 fL (8.0-11.0); Monocytes % 5.5 %; Neutrophils % 60.8 %; Platelet Count 106 10^3/uL (130-400); RBC 3.89 10^6/uL (4.36-5.78); RDW 15.9 % (11.8-14.1); RDW-SD 49.6 fL
[2023-09-16 11:02] LABS: ALT 23 U/L (16-63); AST 14 U/L (15-37); Albumin 3.7 g/dL (3.4-5.0); Alkaline Phosphatase 76 U/L (46-116); Anion Gap 10.2 mmol/L (3-11); BUN 19 mg/dL (7-18); Bilirubin, Total 0.6 mg/dL (0.2-1.0); CO2 26.8 mmol/L (21.0-32.0); CREATININE 1.4 mg/dL (0.70-1.30); Calcium 8.9 mg/dL (8.5-10.1); Chloride 107 mmol/L (98-107); Estimated GFR 55.43 (mL/min/1.73m2); Glucose 172 mg/dL (74-106); Magnesium 1.8 mg/dL (1.8-2.4); Potassium 4.5 mmol/L (3.5-5.1); Sodium 144 mmol/L (136-145); Total Protein 6.6 g/dL (6.4-8.2)
[2023-09-23] MEDS: Normal Saline Flush 10 ML SYR IVP (11:50)
[2023-09-23 12:14] LABS: Abs Immature Grans 0.09 10^3/uL (0.0-0.06); Absolute Basophil Count 0.02 10^3/uL (0.0-0.2); Absolute Eosinophil Count 0.07 10^3/uL (0.0-0.7); Absolute Monocyte Count 0.34 10^3/uL (0.1-0.8); Absolute Neutrophil Count 3.44 10^3/uL (1.2-6.7); Basophils % 0.3 %; Eosinophils % 1.1 %; HCT 34.8 % (40.0-50.0); Immature Grans % 1.5 %; Lymphocytes % 35.7 %; MCH 28.8 pg (27.0-33.0); MCHC 34.5 % (32.0-36.0); MCV 84 fL (80-95); MPV 11.1 fL (8.0-11.0); Monocytes % 5.5 %; Neutrophils % 55.9 %; Platelet Count 148 10^3/uL (130-400); RBC 4.16 10^6/uL (4.36-5.78); RDW 15.8 % (11.8-14.1); RDW-SD 46.5 fL; WBC 6.16 10^3/uL (4.4-10.8)
[2023-09-23 12:32] LABS: ALT 24 U/L (16-63); AST 13 U/L (15-37); Alkaline Phosphatase 79 U/L (46-116); Anion Gap 10.4 mmol/L (3-11); BUN 23 mg/dL (7-18); Bilirubin, Total 0.5 mg/dL (0.2-1.0); CO2 26.6 mmol/L (21.0-32.0); CREATININE 1.3 mg/dL (0.70-1.30); Calcium 9.3 mg/dL (8.5-10.1); Chloride 106 mmol/L (98-107); Estimated GFR 60.59 (mL/min/1.73m2); Glucose 152 mg/dL (74-106); Magnesium 1.8 mg/dL (1.8-2.4); Potassium 4.8 mmol/L (3.5-5.1); Sodium 143 mmol/L (136-145); Total Protein 7.1 g/dL (6.4-8.2)
[2023-10-07] MEDS: Normal Saline Flush 10 ML SYR IVP (10:19)
[2023-10-07 10:27] LABS: Abs Immature Grans 0.04 10^3/uL (0.0-0.06); Absolute Basophil Count 0.02 10^3/uL (0.0-0.2); Absolute Eosinophil Count 0.05 10^3/uL (0.0-0.7); Absolute Lymphocyte Count 2.26 10^3/uL (1.2-3.4); Absolute Monocyte Count 0.34 10^3/uL (0.1-0.8); Absolute Neutrophil Count 3.34 10^3/uL (1.2-6.7); Basophils % 0.3 %; Eosinophils % 0.8 %; HCT 33.2 % (40.0-50.0); HGB 11.1 g/dL (13.5-17.5); Immature Grans % 0.7 %; Lymphocytes % 37.4 %; MCH 28.8 pg (27.0-33.0); MCHC 33.4 % (32.0-36.0); MCV 86 fL (80-95); MPV 11.2 fL (8.0-11.0); Monocytes % 5.6 %; Neutrophils % 55.2 %; Platelet Count 131 10^3/uL (130-400); RBC 3.85 10^6/uL (4.36-5.78); RDW 16.6 % (11.8-14.1); RDW-SD 51.6 fL; WBC 6.05 10^3/uL (4.4-10.8)
[2023-10-07 10:42] LABS: ALT 23 U/L (16-63); AST 15 U/L (15-37); Albumin 3.7 g/dL (3.4-5.0); Alkaline Phosphatase 89 U/L (46-116); Anion Gap 7.3 mmol/L (3-11); BUN 17 mg/dL (7-18); Bilirubin, Total 0.72 mg/dL (0.2-1.0); CO2 28.7 mmol/L (21.0-32.0); CREATININE 1.3 mg/dL (0.70-1.30); Calcium 8.8 mg/dL (8.5-10.1); Chloride 106 mmol/L (98-107); Estimated GFR 60.59 (mL/min/1.73m2); Glucose 146 mg/dL (74-106); Magnesium 1.7 mg/dL (1.8-2.4); Potassium 4.7 mmol/L (3.5-5.1); Sodium 142 mmol/L (136-145); Total Protein 6.8 g/dL (6.4-8.2)
== END 2023-10-12 23:59 | disposition home or self-care (01) ==
LOC: INF 10:00
PROVIDERS: Nurse Practitioner; Visit Provider Internal Medicine
DX: C79.10 Secondary malignant neoplasm of unspecified urinary organs (principal); C64.1 Malignant neoplasm of right kidney, except renal pelvis; Z45.2 Encounter for adjustment and management of vascular access device
CPT/HCPCS: 36591; 80053; 83735; 85025

== ENCOUNTER 2023-11-10 11:00 | Outpatient (RCR) | payer MEDICARE, SELFPAY ==
[2023-10-14 10:50] LABS: Abs Immature Grans 0.12 10^3/uL (0.0-0.06); Absolute Basophil Count 0.03 10^3/uL (0.0-0.2); Absolute Eosinophil Count 0.08 10^3/uL (0.0-0.7); Absolute Lymphocyte Count 2.22 10^3/uL (1.2-3.4); Absolute Monocyte Count 0.39 10^3/uL (0.1-0.8); Absolute Neutrophil Count 3.17 10^3/uL (1.2-6.7); Basophils % 0.5 %; Eosinophils % 1.3 %; HCT 33.1 % (40.0-50.0); HGB 11.2 g/dL (13.5-17.5); Lymphocytes % 36.9 %; MCH 29.2 pg (27.0-33.0); MCHC 33.8 % (32.0-36.0); MCV 86 fL (80-95); MPV 11.4 fL (8.0-11.0); Monocytes % 6.5 %; Neutrophils % 52.8 %; Platelet Count 146 10^3/uL (130-400); RBC 3.84 10^6/uL (4.36-5.78); RDW 16.1 % (11.8-14.1); RDW-SD 50.4 fL; WBC 6.01 10^3/uL (4.4-10.8)
[2023-10-14] MEDS: Normal Saline Flush 10 ML SYR IVP (11:07)
[2023-10-14 11:18] LABS: ALT 23 U/L (16-63); AST 14 U/L (15-37); Albumin 3.8 g/dL (3.4-5.0); Alkaline Phosphatase 84 U/L (46-116); Anion Gap 8.7 mmol/L (3-11); BUN 16 mg/dL (7-18); Bilirubin, Total 0.58 mg/dL (0.2-1.0); CO2 28.3 mmol/L (21.0-32.0); CREATININE 1.2 mg/dL (0.70-1.30); Calcium 8.8 mg/dL (8.5-10.1); Chloride 105 mmol/L (98-107); Glucose 142 mg/dL (74-106); Magnesium 1.8 mg/dL (1.8-2.4); Potassium 4.5 mmol/L (3.5-5.1); Sodium 142 mmol/L (136-145); Total Protein 6.9 g/dL (6.4-8.2)
[2023-11-03] MEDS: Normal Saline Flush 10 ML SYR IVP (10:05)
[2023-11-03 10:07] LABS: Abs Immature Grans 0.02 10^3/uL (0.0-0.06); Absolute Basophil Count 0.01 10^3/uL (0.0-0.2); Absolute Eosinophil Count 0.07 10^3/uL (0.0-0.7); Absolute Lymphocyte Count 1.68 10^3/uL (1.2-3.4); Absolute Monocyte Count 0.32 10^3/uL (0.1-0.8); Absolute Neutrophil Count 2.35 10^3/uL (1.2-6.7); Basophils % 0.2 %; Eosinophils % 1.6 %; HCT 30.9 % (40.0-50.0); HGB 10.4 g/dL (13.5-17.5); Immature Grans % 0.4 %; Lymphocytes % 37.8 %; MCH 29.9 pg (27.0-33.0); MCHC 33.7 % (32.0-36.0); MCV 89 fL (80-95); MPV 11.8 fL (8.0-11.0); Monocytes % 7.2 %; Neutrophils % 52.8 %; Platelet Count 107 10^3/uL (130-400); RBC 3.48 10^6/uL (4.36-5.78); RDW 15.7 % (11.8-14.1); RDW-SD 51.4 fL; WBC 4.45 10^3/uL (4.4-10.8)
[2023-11-03 10:31] LABS: ALT 20 U/L (16-63); AST 11 U/L (15-37); Albumin 3.6 g/dL (3.4-5.0); Alkaline Phosphatase 73 U/L (46-116); Anion Gap 9.3 mmol/L (3-11); BUN 19 mg/dL (7-18); Bilirubin, Total 0.68 mg/dL (0.2-1.0); CO2 25.7 mmol/L (21.0-32.0); CREATININE 1.2 mg/dL (0.70-1.30); Calcium 8.8 mg/dL (8.5-10.1); Chloride 105 mmol/L (98-107); Glucose 154 mg/dL (74-106); Magnesium 1.5 mg/dL (1.8-2.4); Potassium 4.8 mmol/L (3.5-5.1); Sodium 140 mmol/L (136-145); Total Protein 6.4 g/dL (6.4-8.2)
[2023-11-10] MEDS: Normal Saline Flush 10 ML SYR IVP (11:00)
[2023-11-10 12:14] LABS: Abs Immature Grans 0.09 10^3/uL (0.0-0.06); Absolute Basophil Count 0.03 10^3/uL (0.0-0.2); Absolute Eosinophil Count 0.06 10^3/uL (0.0-0.7); Absolute Monocyte Count 0.33 10^3/uL (0.1-0.8); Basophils % 0.5 %; HCT 30.2 % (40.0-50.0); HGB 10.6 g/dL (13.5-17.5); Immature Grans % 1.5 %; Lymphocytes % 36.6 %; MCH 30.7 pg (27.0-33.0); MCHC 35.1 % (32.0-36.0); MCV 88 fL (80-95); MPV 11.9 fL (8.0-11.0); Monocytes % 5.5 %; Neutrophils % 54.9 %; Platelet Count 143 10^3/uL (130-400); RBC 3.45 10^6/uL (4.36-5.78); RDW 14.3 % (11.8-14.1); RDW-SD 45.8 fL; WBC 6.01 10^3/uL (4.4-10.8)
[2023-11-10 12:37] LABS: ALT 18 U/L (16-63); AST 13 U/L (15-37); Albumin 3.7 g/dL (3.4-5.0); Alkaline Phosphatase 93 U/L (46-116); Anion Gap 10.2 mmol/L (3-11); BUN 15 mg/dL (7-18); Bilirubin, Total 0.62 mg/dL (0.2-1.0); CO2 26.8 mmol/L (21.0-32.0); CREATININE 1.3 mg/dL (0.70-1.30); Calcium 8.7 mg/dL (8.5-10.1); Chloride 107 mmol/L (98-107); Estimated GFR 60.59 (mL/min/1.73m2); FREE T4 1.18 ng/dL (0.76-1.46); Glucose 131 mg/dL (74-106); Magnesium 1.8 mg/dL (1.8-2.4); Potassium 4.4 mmol/L (3.5-5.1); Sodium 144 mmol/L (136-145); Total Protein 6.8 g/dL (6.4-8.2)
== END 2023-11-12 23:59 | disposition home or self-care (01) ==
LOC: INF 11:00
PROVIDERS: Nurse Practitioner; Visit Provider Internal Medicine
DX: C79.10 Secondary malignant neoplasm of unspecified urinary organs (principal); E03.2 Hypothyroidism due to medicaments and other exogenous substances; Z45.2 Encounter for adjustment and management of vascular access device
CPT/HCPCS: 36591; 80053; 83735; 84439; 85025

== ENCOUNTER 2023-11-27 02:00 | Outpatient (CLI) | payer MEDICARE, SELFPAY ==
--- NOTE | 2023-11-27 13:49 | DI.US_ITS ---
APPROVED REPORT EXAM: Comprehensive 2D, Doppler, and color-flow Echocardiogram Patient Location: Out-Patient Neuro Urologist: Ann Wen RDCS (AE) Indications: High risk medication use, Metastatic urothelial Cancer Other Information Study Quality: Adequate Conclusion Normal left ventricular wall thickness and chamber size. Ejection fraction is 58%. Wall motion is n ormal Normal right ventricular size and function Both atria are normal in size Trileaflet aortic valve with mild regurgitation Normal mitral valve with mild to moderate regurgitation Normal tricuspid valve, trace regurgitation, estimated right ventricular systolic pressure is 20 mmHg Ascending aorta measures 4.03 cm Wall motion Left Ventricle The left ventricle is normal size. The left ventricular systolic function is normal. The left ventric ular ejection fraction is within the normal range. GLS is 15.3% There is normal left ventricular wall thickness. There is normal LV segmental wall motion. There is no ventricular septal defect visualize d. LVEF is 58%. Right Ventricle The right ventricle is normal size. The right ventricular systolic function is normal. Atria The left atrium size is normal. The right atrium size is normal. The interatrial septum is intact wit h no evidence for an atrial septal defect. Aortic Valve The aortic valve is normal in structure. Aortic valve is trileaflet. There is no aortic valvular sten osis. Mild aortic regurgitation. Mitral Valve The mitral valve is normal in structure. No evidence of mitral valve stenosis. Mild to moderate lucien l regurgitation. Tricuspid Valve The tricuspid valve is normal in structure. There is no tricuspid valve stenosis. Trace tricuspid reg urgitation. The RVSP is 19.9 mmHg. Pulmonic Valve The pulmonary valve is normal in structure. There is no pulmonic valvular stenosis. Trace pulmonic re gurgitation. Great Vessels The aortic root is normal in size. The ascending aorta is mildly dilated. Aortic arch is not well vis ualized. IVC is normal in size and collapses >50% with inspiration. Pericardium There is no pericardial effusion. 2D Dimensions IVSD d PLAX 0.91 cm M: 0.6-1.2 Ao Root d 3.76 cm M: 3.1 - 3.7 LVPW d PLAX 0.91 cm M: 0.6 - 1.2 Ao Asc Diam d 4.03 cm M: 2.6 - 3.4 LVID d PLAX 5.16 cm M: 4.2 - 5.8 LVDs 3.54 cm M: 2.5 - 4.0 LV EF Teichholz 58.8 % FS 31.31 % LV EDV (Teich) 127.2 mL LV ESV (Teich) 52.4 mL M-Mode TAPSE 1.94 cm (M/F) >1.7 Auto EF LV EDV A4C 143.3 mL LV EDV A2C 142.4 mL LV EDV BP 143.3 mL LV ESV A4C 63.1 mL LV ESV A2C 58.0 mL LV ESV BP 60.3 mL LVEF(%) A4C 55.9 % LVEF(%) A2C 59.2 % LVEF(%) BP 57.9 % LV SV A4C 80.2 ml LV SV A2C 84.3 ml LV SV BP 83.0 ml LV CO A4C 4.6 L/min LV CO A2C 5.1 L/min LV CO BP 4.9 L/min HR A4C 57.70 BPM HR A2C 60.30 BPM LV EDV Index (BP) LV Strain Long Pk Overal Avg (s) 15.30 LA Volume LA Length A4C 5.1 cm LA Length A2C 5.8 cm LA Area A4C s 18.04 cm2 LA Area A2C s 16.57 cm2 LA Vol A4C A-L 54.03 mL LA Vol A2C A-L 39.90 mL LA Vol Biplane A-L 49.6 mL LA Vol/BSA A4C A-L LA Vol/BSA A2C A-L LA Vol/BSA BP A-L 25.4 mL/m2 LA Vol A4C MOD 50.9 mL LA Vol A2C MOD 38.3 mL LA Vol BP MOD 47.1 mL RA Volume RA Area A4C 16.4 cm2 RA ESV A4C (A-L) 38.2mL RA Vol/BSA A4C A-L RA Length A4C 6.0 cm RA ESV A4C (MOD) 35.3mL LV Diastology MV E' medial 0.052 (>0.07 m/s) MV E Vmax 0.88 (0.4-1.3 m/s) MV E/E' MED 16.88 (<14) MV A Vmax 1.00 (0.4-1.3 m/s) MV E' lateral 0.050 (>0.1 m/s) E/A Ratio 0.9 MV E/E' LAT 17.79 (<14) MV E' Average 0.051 m/s MV E/E'(average) 17.33 Aortic Valve AoV Vmax 1.47 m/s LVOT Vmax 1.05 m/s AoV Peak Grad 32.8 mmHg LVOT Peak Grad 4.4 mmHg AoV Area (Vmax) 2.32 cm2 LVOT VTI 0.230 m AoV VTI 0.336 m LVOT Mean Grad 2.2 mmHg AoV Mean Titus. 1.02 m/s LVOT SV 74.62 mL AoV Mean Grad 4.7 mmHg LVOT Diam s 2.00 cm AoV Area (VTI) 2.22 cm2 AV Regurg Peak Gr. 8.68 mmHg Velocity Ratio 0.71 AR Decel [place] 1.2m/sec2 AR DT 3022 msec AR PHT 876 msec AR Vmax 3.77 m/s Mitral Valve MV DT 187 (160-240 msec) MV Vmax TIPS 0.89 m/s MV Mean Grad 1.7 (<2mmHg) MV VTI 0.326 m Pulmonary Valve PV Vmax 1.15 (0.5-1.5 m/s) RVOT Vmax 0.85 m/s PV Peak Grad 5.3 mmHg RVOT Peak Gr. 2.9 mmHg PV Mean Titus 0.86 m/s RVOT VTI 0.165 m PV Mean Grad 3.3 mmHg RVOT Mean Gr. 1.7 mmHg Tricuspid Valve RA Pressure 3.00 mmHg TR Vmax 2.06 m/s TV S' 0.17 m/s TR Peak Grad 16.9 mmHg RVSP (TR) 19.9 mmHg
== END 2023-11-27 02:20 ==
LOC: DI 02:00
PROVIDERS: Visit Provider Nurse Practitioner
DX: Z79.899 Other long term (current) drug therapy (principal); C79.10 Secondary malignant neoplasm of unspecified urinary organs
CPT/HCPCS: 93306

== ENCOUNTER 2023-12-08 02:43 | Outpatient (RCR) | payer MEDICARE, SELFPAY ==
[2023-11-24] MEDS: Normal Saline Flush 10 ML SYR IVP (11:55)
[2023-11-24 12:21] LABS: FREE T4 1.65 ng/dL (0.76-1.46); TSH 0.27 uIU/Ml (0.36-3.74)
[2023-11-24 12:57] LABS: Abs Immature Grans 0.03 10^3/uL (0.0-0.06); Absolute Basophil Count 0.02 10^3/uL (0.0-0.2); Absolute Eosinophil Count 0.07 10^3/uL (0.0-0.7); Absolute Lymphocyte Count 2.41 10^3/uL (1.2-3.4); Absolute Monocyte Count 0.29 10^3/uL (0.1-0.8); Absolute Neutrophil Count 2.52 10^3/uL (1.2-6.7); Basophils % 0.4 %; Eosinophils % 1.3 %; HCT 34.1 % (40.0-50.0); HGB 11.4 g/dL (13.5-17.5); Immature Grans % 0.6 %; Lymphocytes % 45.1 %; MCH 30.5 pg (27.0-33.0); MCHC 33.4 % (32.0-36.0); MCV 91 fL (80-95); MPV 12.3 fL (8.0-11.0); Monocytes % 5.4 %; Neutrophils % 47.2 %; Platelet Count 121 10^3/uL (130-400); RBC 3.74 10^6/uL (4.36-5.78); RDW 14.6 % (11.8-14.1); RDW-SD 49.3 fL; WBC 5.34 10^3/uL (4.4-10.8)
[2023-11-24 13:10] LABS: ALT 18 U/L (16-63); AST 14 U/L (15-37); Albumin 3.8 g/dL (3.4-5.0); Alkaline Phosphatase 90 U/L (46-116); Anion Gap 6.6 mmol/L (3-11); BUN 20 mg/dL (7-18); Bilirubin, Total 0.47 mg/dL (0.2-1.0); CO2 27.4 mmol/L (21.0-32.0); CREATININE 1.4 mg/dL (0.70-1.30); Calcium 8.6 mg/dL (8.5-10.1); Chloride 109 mmol/L (98-107); Estimated GFR 55.43 (mL/min/1.73m2); Glucose 188 mg/dL (74-106); Magnesium 2.2 mg/dL (1.8-2.4); Potassium 4.9 mmol/L (3.5-5.1); Sodium 143 mmol/L (136-145); Total Protein 6.7 g/dL (6.4-8.2)
[2023-12-01] MEDS: Normal Saline Flush 10 ML SYR IVP (12:32)
[2023-12-01 12:45] LABS: Abs Immature Grans 0.09 10^3/uL (0.0-0.06); Absolute Basophil Count 0.03 10^3/uL (0.0-0.2); Absolute Eosinophil Count 0.09 10^3/uL (0.0-0.7); Absolute Lymphocyte Count 1.83 10^3/uL (1.2-3.4); Absolute Monocyte Count 0.29 10^3/uL (0.1-0.8); Absolute Neutrophil Count 2.46 10^3/uL (1.2-6.7); Basophils % 0.6 %; Eosinophils % 1.9 %; HCT 34.1 % (40.0-50.0); HGB 11.6 g/dL (13.5-17.5); Immature Grans % 1.9 %; Lymphocytes % 38.2 %; MCH 30.4 pg (27.0-33.0); MCV 90 fL (80-95); MPV 11.5 fL (8.0-11.0); Monocytes % 6.1 %; Neutrophils % 51.3 %; Platelet Count 126 10^3/uL (130-400); RBC 3.81 10^6/uL (4.36-5.78); RDW 14.2 % (11.8-14.1); RDW-SD 45.9 fL; WBC 4.79 10^3/uL (4.4-10.8)
[2023-12-01 13:18] LABS: ALT 20 U/L (16-63); AST 17 U/L (15-37); Albumin 3.9 g/dL (3.4-5.0); Alkaline Phosphatase 90 U/L (46-116); Anion Gap 10.2 mmol/L (3-11); BUN 24 mg/dL (7-18); Bilirubin, Total 0.52 mg/dL (0.2-1.0); CO2 25.8 mmol/L (21.0-32.0); CREATININE 1.3 mg/dL (0.70-1.30); Calcium 9.3 mg/dL (8.5-10.1); Chloride 105 mmol/L (98-107); Estimated GFR 60.59 (mL/min/1.73m2); Glucose 164 mg/dL (74-106); Magnesium 1.7 mg/dL (1.8-2.4); Potassium 4.8 mmol/L (3.5-5.1); Sodium 141 mmol/L (136-145); Total Protein 6.9 g/dL (6.4-8.2)
== END 2023-12-13 23:59 | disposition home or self-care (01) ==
LOC: INF 02:43
PROVIDERS: Nurse Practitioner; Visit Provider Internal Medicine
DX: C79.10 Secondary malignant neoplasm of unspecified urinary organs (principal); E03.2 Hypothyroidism due to medicaments and other exogenous substances; C64.1 Malignant neoplasm of right kidney, except renal pelvis; Z79.899 Other long term (current) drug therapy; G62.0 Drug-induced polyneuropathy
CPT/HCPCS: 36591; 80053; 83735; 84439; 84443; 85025

== ENCOUNTER 2023-12-25 02:00 | Outpatient (CLI) | payer MEDICARE, SELFPAY ==
--- NOTE | 2023-12-25 | DI.CT_ITS ---
Exam(s) CT CHEST/ABD/PEL W EXAM: CT CHEST/ABD/PEL W CLINICAL HISTORY: METASTATIC UROTHELIAL CARCINOMA, C79.10. TECHNIQUE: Imaging Protocol: Axial computed tomography images with coronal and sagittal reformatted images were created and reviewed CONTRAST MATERIAL: Intravenous: Omnipaque 350 Contrast volume:85 ml Oral: yes / COMPARISON: CT CT CHEST/ABD/PEL W from 08/29/[address] ABD/PELVIS W CONTRAST from 10/24/[address] CHEST W CONTRAST from 10/24/2023 FINDINGS: CHEST: Tracheobronchial tree: Patent. Pulmonary parenchyma: No consolidation. The stable size and appearance of lobulated mass in the righ t middle lobe. No new masses or pulmonary nodules. Pleura: No effusion or pneumothorax. Mediastinum: Within normal limits. Aorta: Ascending aorta measures 4 cm, unchanged. Pulmonary arteries: No visible emboli. Heart: No pericardial effusion. Coronary artery calcifications. Bones: Stable sclerotic focus in the T9 vertebral body. Degenerative changes.No compression fracture s. Soft tissues: Unremarkable. Right-sided port. ABDOMEN and PELVIS: Liver: Normal density. Multiple ill-defined liver mass is noted throughout, greater in right lobe wit hout definite change. Gallbladder and biliary tract: Status post cholecystic no biliary dilatation. Pancreas: Normal density, no abnormal calcifications or inflammatory process. Spleen: enlarged. Stable enhancing lesion in the inferior spleen. Kidneys: Status post right nephrectomy. No radiodense stones. No obstructive uropathy. Large left renal cyst. No suspicious masses seen. Adrenal glands: Status post right adrenalectomy. No left renal mass. Aorta: Abdominal portion non-dilated. Lymph nodes: Within normal limits. Soft tissues: Bilateral fatty containing inguinal hernias. Bladder: Over distended. No focal abnormality. Bowel: No obstruction or bowel wall thickening. Peritoneal cavity: Stable enhancing mass in the anterior mesentery at the level of the umbilicus prateek uring 3.9 cm. Stable small area of nodular thickening in the anterior abdominal wall at the level of the umbilicus. No ascites. No focal collection. No mesenteric inflammatory response. No free air. Bones: Stable mild compression fracture of L1. Severe degenerative changes L5-S1. Reproductive organs: Within normal limits. IMPRESSION: Stable lobulated mass in the right middle lobe. Stable multiple liver metastases. Stable splenomegaly enhancing lesion in the inferior spleen. stable anterior mesenteric mass. Stable sclerotic focus in the T12 vertebral body. RADIATION DOSE DELIVERED: 511.65mGy.cm Total DLP DATA REPOSITORY: All CT scans at this facility are submitted to the National Radiology Data Registry (NRDR) Dose Index Registry (DIR) with the [employer] (ACR). RADIATION OPTIMIZATION: All CT scans at this facility use at least one of these dose optimization te chniques: automated exposure control; mA and/or kV adjustment per patient size (includes targeted exa ms where dose is matched to clinical indication); or iterative reconstruction.
[2023-12-25] MEDS: Barium Sulfate 2% W/V-Berry Smoothie 450 ML BTL PO ×2 (11:41→11:42)
[2023-12-25] MEDS: Normal Saline - Diluent 50 ML VIAL IJ (14:22)
[2023-12-25] MEDS: Omnipaque 350 MG/ML 100 ML BTL IJ (14:22)
== END 2023-12-25 02:20 ==
LOC: DI 02:00
PROVIDERS: Visit Provider Nurse Practitioner
DX: R16.2 Hepatomegaly with splenomegaly, not elsewhere classified (principal); C79.10 Secondary malignant neoplasm of unspecified urinary organs
CPT/HCPCS: 74177; 71260; J3490

== ENCOUNTER 2024-01-06 01:58 | Outpatient (RCR) | payer MEDICARE, SELFPAY ==
[2023-12-25] MEDS: Normal Saline Flush 10 ML SYR IVP (11:36)
== END 2024-01-12 23:59 | disposition home or self-care (01) ==
LOC: INF 01:58
PROVIDERS: Visit Provider Internal Medicine
DX: Z45.2 Encounter for adjustment and management of vascular access device (principal)
CPT/HCPCS: 96523

== ENCOUNTER 2024-02-09 10:05 | Outpatient (RCR) | payer MEDICARE, SELFPAY ==
[2024-01-13 10:21] LABS: Abs Immature Grans 0.03 10^3/uL (0.0-0.06); Absolute Basophil Count 0.01 10^3/uL (0.0-0.2); Absolute Lymphocyte Count 1.97 10^3/uL (1.2-3.4); Absolute Monocyte Count 0.29 10^3/uL (0.1-0.8); Absolute Neutrophil Count 3.55 10^3/uL (1.2-6.7); Basophils % 0.2 %; Eosinophils % 1.7 %; HCT 37.2 % (40.0-50.0); HGB 12.6 g/dL (13.5-17.5); Immature Grans % 0.5 %; Lymphocytes % 33.1 %; MCH 29.6 pg (27.0-33.0); MCHC 33.9 % (32.0-36.0); MCV 87 fL (80-95); Monocytes % 4.9 %; Neutrophils % 59.6 %; Platelet Count 107 10^3/uL (130-400); RBC 4.26 10^6/uL (4.36-5.78); RDW 13.3 % (11.8-14.1); RDW-SD 42.7 fL; WBC 5.95 10^3/uL (4.4-10.8)
[2024-01-13] MEDS: Normal Saline Flush 10 ML SYR IVP (10:35)
[2024-01-13 10:49] LABS: ALT 21 U/L (16-63); AST 16 U/L (15-37); Albumin 3.8 g/dL (3.4-5.0); Alkaline Phosphatase 95 U/L (46-116); Anion Gap 7.7 mmol/L (3-11); BUN 17 mg/dL (7-18); Bilirubin, Total 0.73 mg/dL (0.2-1.0); CO2 26.3 mmol/L (21.0-32.0); CREATININE 1.2 mg/dL (0.70-1.30); Calcium 9.1 mg/dL (8.5-10.1); Chloride 105 mmol/L (98-107); Glucose 151 mg/dL (74-106); Magnesium 1.6 mg/dL (1.8-2.4); Potassium 4.3 mmol/L (3.5-5.1); Sodium 139 mmol/L (136-145); Total Protein 6.8 g/dL (6.4-8.2)
[2024-01-20] MEDS: Normal Saline Flush 10 ML SYR IVP (09:37)
[2024-01-20 09:52] LABS: Abs Immature Grans 0.04 10^3/uL (0.0-0.06); Absolute Basophil Count 0.02 10^3/uL (0.0-0.2); Absolute Eosinophil Count 0.11 10^3/uL (0.0-0.7); Absolute Lymphocyte Count 1.59 10^3/uL (1.2-3.4); Absolute Monocyte Count 0.45 10^3/uL (0.1-0.8); Absolute Neutrophil Count 4.16 10^3/uL (1.2-6.7); Basophils % 0.3 %; Eosinophils % 1.7 %; HCT 33.6 % (40.0-50.0); HGB 11.2 g/dL (13.5-17.5); Immature Grans % 0.6 %; MCH 29.2 pg (27.0-33.0); MCHC 33.3 % (32.0-36.0); MCV 88 fL (80-95); MPV 11.5 fL (8.0-11.0); Monocytes % 7.1 %; Neutrophils % 65.3 %; Platelet Count 124 10^3/uL (130-400); RBC 3.83 10^6/uL (4.36-5.78); RDW 12.9 % (11.8-14.1); RDW-SD 41.5 fL; WBC 6.37 10^3/uL (4.4-10.8)
[2024-01-20 10:23] LABS: ALT 15 U/L (16-63); AST 13 U/L (15-37); Albumin 3.5 g/dL (3.4-5.0); Alkaline Phosphatase 110 U/L (46-116); BUN 18 mg/dL (7-18); Bilirubin, Total 0.65 mg/dL (0.2-1.0); CREATININE 1.3 mg/dL (0.70-1.30); Calcium 9.1 mg/dL (8.5-10.1); Chloride 107 mmol/L (98-107); Estimated GFR 60.59 (mL/min/1.73m2); Glucose 158 mg/dL (74-106); Magnesium 2.4 mg/dL (1.8-2.4); Potassium 4.5 mmol/L (3.5-5.1); Sodium 143 mmol/L (136-145)
[2024-01-20 11:23] LABS: FREE T4 1.32 ng/dL (0.76-1.46); TSH 1.02 uIU/Ml (0.36-3.74)
[2024-02-09] MEDS: Normal Saline Flush 10 ML SYR IVP (10:13)
[2024-02-09 10:32] LABS: Abs Immature Grans 0.02 10^3/uL (0.0-0.06); Absolute Basophil Count 0.03 10^3/uL (0.0-0.2); Absolute Lymphocyte Count 1.81 10^3/uL (1.2-3.4); Absolute Monocyte Count 0.31 10^3/uL (0.1-0.8); Absolute Neutrophil Count 2.72 10^3/uL (1.2-6.7); Basophils % 0.6 %; HCT 37.8 % (40.0-50.0); HGB 12.6 g/dL (13.5-17.5); Immature Grans % 0.4 %; Lymphocytes % 36.3 %; MCH 28.8 pg (27.0-33.0); MCHC 33.3 % (32.0-36.0); MCV 86 fL (80-95); MPV 11.8 fL (8.0-11.0); Monocytes % 6.2 %; Neutrophils % 54.5 %; Platelet Count 114 10^3/uL (130-400); RBC 4.38 10^6/uL (4.36-5.78); RDW 13.6 % (11.8-14.1); RDW-SD 42.3 fL; WBC 4.99 10^3/uL (4.4-10.8)
[2024-02-09 10:55] LABS: ALT 20 U/L (16-63); AST 17 U/L (15-37); Albumin 3.8 g/dL (3.4-5.0); Alkaline Phosphatase 109 U/L (46-116); Anion Gap 10.2 mmol/L (3-11); BUN 21 mg/dL (7-18); Bilirubin, Total 0.74 mg/dL (0.2-1.0); CO2 26.8 mmol/L (21.0-32.0); CREATININE 1.5 mg/dL (0.70-1.30); Calcium 9.4 mg/dL (8.5-10.1); Chloride 104 mmol/L (98-107); Estimated GFR 51.03 (mL/min/1.73m2); Glucose 149 mg/dL (74-106); Magnesium 1.9 mg/dL (1.8-2.4); Potassium 4.4 mmol/L (3.5-5.1); Sodium 141 mmol/L (136-145); Total Protein 7.1 g/dL (6.4-8.2)
== END 2024-02-12 23:59 | disposition home or self-care (01) ==
LOC: INF 10:05
PROVIDERS: Nurse Practitioner; Visit Provider Internal Medicine
DX: C79.10 Secondary malignant neoplasm of unspecified urinary organs (principal); C64.1 Malignant neoplasm of right kidney, except renal pelvis; G62.0 Drug-induced polyneuropathy; E03.2 Hypothyroidism due to medicaments and other exogenous substances; Z45.2 Encounter for adjustment and management of vascular access device
CPT/HCPCS: 36591; 80053; 83735; 84439; 84443; 85025

== ENCOUNTER 2024-03-01 00:59 | Outpatient (CLI) | payer MEDICARE, SELFPAY ==
--- NOTE | 2024-03-01 | DI.CT_ITS ---
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 TECHNIQUE: Imaging Protocol: Axial computed tomography images with coronal and sagittal reformatted images were created and reviewed CONTRAST MATERIAL: Intravenous: Omnipaque 350 Contrast volume:100 ml Oral: Yes. Oral contrast was also administered for bowel opacification. COMPARISON: CT CT CHEST/ABD/PEL W from 12/25/2023 FINDINGS: CHEST: LUNGS: Previously described lobulated solid mass in the right middle lobe is again unchanged. No new lung nodules nor new infiltrates nor pleural effusions. No new findings in the trachea and mainstem bronchi.. MEDIASTINUM: There is no hilar nor mediastinal adenopathy. Distal tip of Port-A-Cath is in the upper right atrium. CARDIAC: Heart size is normal. There is no pericardial effusion.Diameter of the ascending thoracic a renny is again noted be enlarged, measuring 4.5 cm. No dissection. OSSEOUS: Sclerotic bone lesion in T9 vertebra is again noted. Slight loss of height of L1 superior e ndplate is also unchanged. ABDOMEN: There is no ascites. LIVER: Previously described lesions in the liver slightly increased in size and number. GALLBLADDER/BILIARY: Gallbladder is again noted to be surgically absent. The CBD is not dilated. PANCREAS: No evidence of pancreatic mass nor dilatation of the pancreatic duct. SPLEEN: Splenomegaly again noted. Cephalocaudal measurement of the spleen is 14 cm. Unchanged enhan cing lesion in the inferior aspect of the enlarged spleen again noted. Possibly hemangioma. ADRENALS: Left adrenal gland unremarkable. Right adrenal again noted be surgically absent lung of th e right kidney. KIDNEYS: Previous right nephrectomy with no new abnormal tissue in this rib region.. Large exophytic cyst off the posterior left kidney is again noted unchanged as are smaller cortical cysts in the magdaleno e left kidney ABDOMINAL AORTA: Abdominal aorta is calcified but not enlarged. LYMPH NODES: There is no retroperitoneal nor paraaortic adenopathy. ABDOMINAL WALL: No evidence of significant anterior abdominal wall nor inguinal hernia. GI: There is no evidence of bowel obstruction. PELVIS: LYMPH NODES: There is a stable enhancing lobulated mass in the anterior mesentery of the upper pelvis . GI: Evidence of partial right hemicolectomy again noted.No evidence of sigmoid diverticulitis. URINARY BLADDER: Diffuse uniform thickening of the urinary bladder wall is noted which is either rela sonia to cystitis or under distension. REPRODUCTIVE: Prostate size is normal. Seminal vesicles unremarkable. OSSEOUS: No significant osseous lesions. IMPRESSION: 1. Compared to the CT scan 12/25/2023 the previously described large related mass nodule in the right middle lobe is unchanged. There are no new pulmonary findings and there are no pleural effusions no r intrathoracic adenopathy. 2. Slight increase in number of lesions in the liver 3. Unchanged splenomegaly. 4. Stable midline anterior mass in the mesentery of the lower abdomen 5. Stable sclerotic lesion in the posterior T12 vertebral body. Uniform thickening of the urinary bladder wall more than previous. This is either related to under d istension or cystitis. RADIATION DOSE DELIVERED: 560.43mGy.cm Total DLP DATA REPOSITORY: All CT scans at this facility are submitted to the National Radiology Data Registry (NRDR) Dose Index Registry (DIR) with the [employer] (ACR). RADIATION OPTIMIZATION: All CT scans at this facility use at least one of these dose optimization te chniques: automated exposure control; mA and/or kV adjustment per patient size (includes targeted exa ms where dose is matched to clinical indication); or iterative reconstruction.
[2024-03-01] MEDS: Barium Sulfate 2% W/V-Berry Smoothie 450 ML BTL PO (10:51)
[2024-03-01] MEDS: Barium Sulfate 2% W/V-Creamy Vanilla Smoothie 450 ML BTL PO (10:52)
[2024-03-01] MEDS: Normal Saline - Diluent 50 ML VIAL IJ (12:54)
[2024-03-01] MEDS: Omnipaque 350 MG/ML 100 ML BTL IJ (12:55)
== END 2024-03-01 01:19 ==
LOC: DI 00:59
PROVIDERS: Visit Provider Nurse Practitioner
DX: C79.10 Secondary malignant neoplasm of unspecified urinary organs (principal)
CPT/HCPCS: 74177; 80053; 71260; 83735; 84439; 84443; 85025; J3490

== ENCOUNTER 2024-03-09 01:49 | Outpatient (RCR) | payer MEDICARE, SELFPAY ==
[2024-02-17 10:20] LABS: Abs Immature Grans 0.04 10^3/uL (0.0-0.06); Absolute Basophil Count 0.02 10^3/uL (0.0-0.2); Absolute Eosinophil Count 0.09 10^3/uL (0.0-0.7); Absolute Lymphocyte Count 2.06 10^3/uL (1.2-3.4); Absolute Monocyte Count 0.29 10^3/uL (0.1-0.8); Absolute Neutrophil Count 3.11 10^3/uL (1.2-6.7); Basophils % 0.4 %; Eosinophils % 1.6 %; HCT 36.9 % (40.0-50.0); HGB 12.4 g/dL (13.5-17.5); Immature Grans % 0.7 %; Lymphocytes % 36.7 %; MCH 28.7 pg (27.0-33.0); MCHC 33.6 % (32.0-36.0); MCV 85 fL (80-95); MPV 10.7 fL (8.0-11.0); Monocytes % 5.2 %; Neutrophils % 55.4 %; Platelet Count 128 10^3/uL (130-400); RBC 4.32 10^6/uL (4.36-5.78); RDW 13.8 % (11.8-14.1); RDW-SD 42.7 fL; WBC 5.61 10^3/uL (4.4-10.8)
[2024-02-17] MEDS: Normal Saline Flush 10 ML SYR IVP (10:39)
[2024-02-17 10:50] LABS: ALT 19 U/L (16-63); AST 16 U/L (15-37); Albumin 3.7 g/dL (3.4-5.0); Alkaline Phosphatase 98 U/L (46-116); Anion Gap 6.4 mmol/L (3-11); BUN 17 mg/dL (7-18); Bilirubin, Total 0.52 mg/dL (0.2-1.0); CO2 28.6 mmol/L (21.0-32.0); CREATININE 1.3 mg/dL (0.70-1.30); Calcium 8.9 mg/dL (8.5-10.1); Chloride 110 mmol/L (98-107); Estimated GFR 60.59 (mL/min/1.73m2); FREE T4 1.34 ng/dL (0.76-1.46); Glucose 151 mg/dL (74-106); Magnesium 1.9 mg/dL (1.8-2.4); Potassium 4.2 mmol/L (3.5-5.1); Sodium 145 mmol/L (136-145); TSH 0.81 uIU/mL (0.36-3.74); Total Protein 6.8 g/dL (6.4-8.2)
[2024-03-01 11:08] LABS: Abs Immature Grans 0.01 10^3/uL (0.0-0.06); Absolute Basophil Count 0.01 10^3/uL (0.0-0.2); Absolute Eosinophil Count 0.07 10^3/uL (0.0-0.7); Absolute Lymphocyte Count 2.23 10^3/uL (1.2-3.4); Absolute Monocyte Count 0.31 10^3/uL (0.1-0.8); Absolute Neutrophil Count 3.21 10^3/uL (1.2-6.7); Basophils % 0.2 %; Eosinophils % 1.2 %; HCT 37.9 % (40.0-50.0); Immature Grans % 0.2 %; Lymphocytes % 38.2 %; MCH 28.9 pg (27.0-33.0); MCHC 34.3 % (32.0-36.0); MCV 84 fL (80-95); MPV 11.8 fL (8.0-11.0); Monocytes % 5.3 %; Neutrophils % 54.9 %; Platelet Count 118 10^3/uL (130-400); RDW 14.4 % (11.8-14.1); RDW-SD 43.9 fL; WBC 5.84 10^3/uL (4.4-10.8)
[2024-03-01 11:33] LABS: ALT 20 U/L (16-63); AST 18 U/L (15-37); Albumin 3.8 g/dL (3.4-5.0); Alkaline Phosphatase 102 U/L (46-116); Anion Gap 8.8 mmol/L (3-11); BUN 17 mg/dL (7-18); Bilirubin, Total 0.67 mg/dL (0.2-1.0); CO2 25.2 mmol/L (21.0-32.0); CREATININE 1.3 mg/dL (0.70-1.30); Calcium 8.7 mg/dL (8.5-10.1); Chloride 109 mmol/L (98-107); Estimated GFR 60.59 (mL/min/1.73m2); Glucose 152 mg/dL (74-106); Magnesium 1.7 mg/dL (1.8-2.4); Potassium 4.2 mmol/L (3.5-5.1); Sodium 143 mmol/L (136-145); TSH 1.19 uIU/mL (0.36-3.74); Total Protein 6.8 g/dL (6.4-8.2)
[2024-03-01] MEDS: Normal Saline Flush 10 ML SYR IVP (14:20)
== END 2024-03-13 23:59 | disposition home or self-care (01) ==
LOC: INF 01:49
PROVIDERS: Nurse Practitioner; Visit Provider Internal Medicine
DX: G62.2 Polyneuropathy due to other toxic agents; Z45.2 Encounter for adjustment and management of vascular access device; E03.2 Hypothyroidism due to medicaments and other exogenous substances; C64.1 Malignant neoplasm of right kidney, except renal pelvis; C79.10 Secondary malignant neoplasm of unspecified urinary organs
CPT/HCPCS: 36591; 80053; 96523; 83735; 84439; 84443; 85025

== ENCOUNTER 2024-06-17 01:42 | Outpatient (CLI) | payer MEDICARE, SELFPAY ==
--- NOTE | 2024-06-17 | DI.CT_ITS ---
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 TECHNIQUE: Imaging Protocol: Axial computed tomography images with coronal and sagittal reformatted images were created and reviewed CONTRAST MATERIAL: Intravenous: Omnipaque 350 Contrast volume:100 ml Oral: Yes. Oral contrast was also administered for bowel opacification. COMPARISON: CT CT CHEST/ABD/PEL W from 03/01/2024 FINDINGS: CHEST: LUNGS: Previously described lobulated solid mass in the right middle lobe appears unchanged. There a re no new nodules in either lung field and there are no pleural effusions. No new findings in the tr achea and mainstem bronchi.. MEDIASTINUM: There is no hilar nor mediastinal adenopathy. CARDIAC: Heart size is upper normal. There is no pericardial effusion.Diameter of the ascending thor acic aorta is enlarged, measuring 4 cm. There is no evidence of dissection. OSSEOUS: No fractures.Sclerotic non expansile bone lesion in T9 vertebral body is again noted. There are no new osseous lesions evident. Loss of height of superior endplate of L1 is also unchanged.. ABDOMEN: There is no ascites. There is a lobulated anterior slightly right of center mesenteric mass again no sonia, this solid mass being in the slightly right of center mesentery of the lower abdomen and measure s 3.4 cm AP x 3.2 cm wide by 3.3 cm craniocaudal. This exhibits no significant change in size when c ompared to 03/01/2024. LIVER: There has been further increase in size and confluence of metastatic lesions in the liver. GALLBLADDER/BILIARY: Gallbladder is again noted to be surgically absent. CBD is not dilated. PANCREAS: No evidence of pancreatic mass nor dilatation of the pancreatic duct. SPLEEN: Splenomegaly is again noted. Spleen length is 14.3 cm on the present study. Splenic and por chuyita veins are patent. ADRENALS: Left adrenal gland unremarkable. The right adrenal gland is surgically absent. KIDNEYS: Previous right nephrectomy again noted. No new masses in this region. Large exophytic cyst off the lateral cortex of the left kidney is again noted which measures 9 cm. Smaller cortical cyst s in the left kidney are also again noted. No solid renal lesions seen in the left kidney. There is , however, some haziness of the left renal pelvis noted. No solid mass in the left kidney. No calcu li. No hydronephrosis nor hydroureter. The wall of the urinary bladder is abnormally diffusely thickened. Suspect chronic cystitis. Neopla sm cannot be excluded. ABDOMINAL AORTA: Abdominal aorta is calcified but not enlarged. Iliac arteries also calcified but no t enlarged. LYMPH NODES: There is no retroperitoneal nor paraaortic adenopathy. ABDOMINAL WALL: No evidence of significant anterior abdominal wall nor inguinal hernia. GI: Again noted is evidence of right hemicolectomy. No bowel obstruction. No free air. No abscess. No evidence of diverticulitis. PELVIS: LYMPH NODES: Anterior mesenteric mass as above, unchanged from 03/01/2024. URINARY BLADDER: Diffuse mural thickening. REPRODUCTIVE: Prostate size upper normal. Seminal vesicles unremarkable. OSSEOUS: No significant osseous lesions. IMPRESSION: 1. Compared to the prior CT scans of December and February 2024 the lobulated solid right middle lob e mass remains unchanged. There are no new lung nodules nor pleural effusions. There is no intratho racic adenopathy. 2. Further increase in size and confluence of the multiple metastatic lesions in the liver. There is no ascites. 3. Splenomegaly again noted. 4. Slightly right of center mass in the anterior mesentery of the lower abdomen is also again noted, unchanged. This measures 3.4 x 3.2 x 3.3 cm. There are no new additional mesenteric masses evident. 5. The right kidney and right adrenal are again noted to be surgically absent and there is again not ed evidence of previous right hemicolectomy. There is no bowel obstruction. Stable sclerotic lesion in the T 9 vertebral body Findings as above. RADIATION DOSE DELIVERED: 964.02mGy.cm Total DLP DATA REPOSITORY: All CT scans at this facility are submitted to the National Radiology Data Registry (NRDR) Dose Index Registry (DIR) with the [employer] (ACR). RADIATION OPTIMIZATION: All CT scans at this facility use at least one of these dose optimization te chniques: automated exposure control; mA and/or kV adjustment per patient size (includes targeted exa ms where dose is matched to clinical indication); or iterative reconstruction.
[2024-06-17] MEDS: Barium Sulfate 2% W/V-Berry Smoothie 450 ML BTL PO ×2 (10:06→10:07)
[2024-06-17] MEDS: Omnipaque 350 MG/ML 100 ML BTL IJ (12:27)
[2024-06-17] MEDS: Normal Saline - Diluent 50 ML VIAL IJ (12:27)
== END 2024-06-17 02:02 ==
LOC: DI 01:42
PROVIDERS: Visit Provider Internal Medicine Hematology
DX: C79.9 Secondary malignant neoplasm of unspecified site (principal); C67.9 Malignant neoplasm of bladder, unspecified; R16.1 Splenomegaly, not elsewhere classified
CPT/HCPCS: 74177; 71260; J3490

== ENCOUNTER 2024-06-17 02:33 | Outpatient (RCR) | payer MEDICARE, SELFPAY ==
[2024-06-17] MEDS: Normal Saline Flush 10 ML SYR IVP (09:54)
[2024-06-17 10:24] LABS: CREATININE 1.7 mg/dL (0.70-1.30); Estimated GFR 43.64 (mL/min/1.73m2)
== END 2024-07-12 23:59 | disposition home or self-care (01) ==
LOC: INF 02:33
PROVIDERS: Visit Provider Internal Medicine Hematology
DX: N18.1 Chronic kidney disease, stage 1 (principal)
CPT/HCPCS: 36591; 82565